=== PATIENT | female | born 1940 | race Two or more races ===

== ENCOUNTER → 2022-12-19 | Outpatient (CLI) | payer MEDICAID ==
[~2022-12-19] VITALS: Ht 134.6 cm; Wt 79.4 kg
[~2022-12-19] MED LIST: ADENOSINE 67 MG in GIVE UN-DILUTED 0 ML IV ONE; ADENOSINE 90 MG/30 ML INJ IV ONE
== END | disposition home or self-care (01) ==
LOC: Rad HDHVI 10:00
PROVIDERS: ATTEND Internal Medicine Cardiovascular Disease
DX: I08.3 Combined rheumatic disorders of mitral, aortic and tricuspid valves (principal); I11.9 Hypertensive heart disease without heart failure; R07.89 Other chest pain; E11.21 Type 2 diabetes mellitus with diabetic nephropathy; E78.00 Pure hypercholesterolemia, unspecified
CPT/HCPCS: 78452; 93005; 93306; 96374; 96375; A9500; J0153

== ENCOUNTER 2022-12-24 22:18 | Inpatient (IN) | payer MEDICAID ==
[~2022-12-24] VITALS: Ht 152.4 cm; Wt 64.4 kg
[2022-12-24 22:37] VITALS: PULSE 66; RESP 24; O2SAT 97
[2022-12-24 22:45] LABS: Base Excess -3.1 mmol/L (-2.0-2.0)
[2022-12-24 23:05] LABS: Basophils # (auto) 0 10 ^3/uL (0-0.2); Basophils % (auto) 0.2 % (0.0-2.0); Eosinophils # (auto) 0.1 10 ^3/uL (0-0.8); Eosinophils % (auto) 0.8 % (0.0-7.0); Hematocrit 38.1 % (36.0-46.0); Hemoglobin 12.8 g/dL (12.2-16.2); Lymphocytes # (auto) 0.6 10 ^3/uL (0.4-5.4); Mean Corpuscular Hemoglobin 29.8 pg (28.0-32.0); Mean Corpuscular Hgb Conc. 33.6 g/dL (32.0-36.0); Mean Corpuscular Volume 88.6 fL (80.0-100.0); Monocytes # (auto) 0.6 10 ^3/uL (0-1.3); Monocytes % (auto) 4.1 % (0.0-12.0); Neutrophils % (auto) 90.9 % (37.0-80.0); Red Cell Distribution Width 13.5 % (11.8-14.3); White Blood Cell 15.4 10^3/uL (4.4-10.8)
[2022-12-24 23:25] LABS: Alanine Aminotransferase 14 U/L (7-40); Albumin 4.4 g/dL (3.2-4.8); Alkaline Phosphatase 73 U/L (46-116); Anion Gap 10 (5-15); Aspartate Aminotransferase 17 U/L (13-40); BUN/Creatinine Ratio 22.8 (10.0-20.0); Blood Urea Nitrogen 13 mg/dL (9-23); Calcium 9.1 mg/dL (8.7-10.4); Carbon Dioxide 23 mmol/L (20-30); Chloride 80 mmol/L (98-107); Glucose 172 mg/dL (74-106); Magnesium 1.7 mg/dL (1.6-2.6); Potassium 3.8 mmol/L (3.5-5.1)
[2022-12-24 23:26] LABS: Bilirubin, Total 1.1 mg/dL (0.2-1.0); Lactic Acid w/Reflex 4.4 mmol/L (0.4-2.0); Total Protein 7.4 g/dL (5.7-8.2)
[2022-12-24] MEDS ORDERED: IPRATROPIUM BROM 0.5 MG/2.5ML INH SOL NEB ONE (23:30)
[2022-12-24] MEDS ORDERED: VANCOMYCIN PER PHARMACY 0 MG IV SCH (23:30)
[2022-12-24] MEDS ORDERED: methylPREDNISolone SOD SUCC 125 MG/2 ML VL IV ONE (23:30)
[2022-12-24] MEDS ORDERED: ALBUTEROL MEDNEB 2.5 mg/3ml NEB NEB ONE (23:30)
[2022-12-24] MEDS ORDERED: CEFTRIAXONE SODIUM 2 GM in D5W 5% 100 ML IV ONE (23:30)
[2022-12-24 23:46] LABS: INR 1.15 (0.9-1.15); Partial Thromboplastin Time 36.7 SEC (24.5-34.5)
[2022-12-25] VITALS (28 sets, daily range): BP systolic 105–133; BP diastolic 32–59; PULSE 51–69; RESP 12–25; TEMP 97.8–98.1; O2SAT 93–100
[2022-12-25] MEDS ORDERED: VANCOMYCIN 1GM/250ML 250 ML IV ONE
[2022-12-25 00:07] LABS: Sodium 113 mmol/L (136-145)
[2022-12-25] MEDS ORDERED: SODIUM CHL 3% 500 ML IV ONE (01:15)
[2022-12-25] MEDS ORDERED: cefTRIAXone 1GM/50ML D5W 50 ML IV ONE ×2 (01:15)
[2022-12-25 02:06] LABS: Sodium Urine < 10 mmol/L (40-220)
[2022-12-25 02:12] LABS: Amphetamine Screen, Urine Neg (NEGATIVE); Barbiturate Scree,Urine Neg (NEGATIVE); Benzodiazephine Screen, Urine Neg (NEGATIVE); Cocaine Screen, Urine Neg (NEGATIVE); Opiate Scree,Urine Neg (NEGATIVE)
[2022-12-25 02:13] LABS: Cannabinoid Screen, Urine Neg (NEGATIVE); Phencyclidine Screen, Urine Neg (NEGATIVE)
[2022-12-25 02:18] LABS: Urine Bacteria FEW /hpf (None Seen); Urine Blood 1+ /uL (Negative); Urine Clarity HAZY (Clear); Urine Color Yellow (Yellow); Urine Hyaline Cast MANY /lpf (0 - 2); Urine Mucus FEW (None Seen); Urine Protein, UAD 1+ (Negative); Urine Specific Gravity 1.016 (1.001-1.035); Urine WBC 38 /hpf (0 - 5); Urine WBC Clumps PRESENT /hpf (None Seen)
[2022-12-25] MEDS ORDERED: ONDANSETRON HCL 4 MG/2 ML VIAL IV PRN (05:00)
[2022-12-25] MEDS ORDERED: HYDROcodone-ACET 5/325MG TAB PO PRN (05:00)
[2022-12-25] MEDS ORDERED: DEXTROSE (50%) 50ML SYRG IV PRN (05:00)
[2022-12-25] MEDS ORDERED: ACETAMINOPHEN 325 MG TAB PO PRN (05:00)
[2022-12-25] MEDS ORDERED: DOCUSATE SOD 100 MG CAP PO PRN (05:00)
[2022-12-25 05:43] LABS: Basophils # (auto) 0 10 ^3/uL (0-0.2); Eosinophils # (auto) 0 10 ^3/uL (0-0.8); Hematocrit 37.1 % (36.0-46.0); Hemoglobin 12.7 g/dL (12.2-16.2); Lymphocytes # (auto) 0.3 10 ^3/uL (0.4-5.4); Mean Corpuscular Hgb Conc. 34.1 g/dL (32.0-36.0); Mean Corpuscular Volume 88.1 fL (80.0-100.0); Monocytes # (auto) 0.2 10 ^3/uL (0-1.3); Monocytes % (auto) 2.2 % (0.0-12.0); Neutrophils # (auto) 10.2 10 ^3/uL (1.6-8.6); Neutrophils % (auto) 94.8 % (37.0-80.0); Red Blood Cells 4.22 10^6/uL (4.0-5.20); Red Cell Distribution Width 13.6 % (11.8-14.3); White Blood Cell 10.7 10^3/uL (4.4-10.8)
[2022-12-25 06:00] LABS: Alanine Aminotransferase 14 U/L (7-40); Albumin 4.1 g/dL (3.2-4.8); Alkaline Phosphatase 74 U/L (46-116); Anion Gap 10 (5-15); Aspartate Aminotransferase 15 U/L (13-40); BUN/Creatinine Ratio 26.8 (10.0-20.0); Bilirubin, Total 0.7 mg/dL (0.2-1.0); Blood Urea Nitrogen 15 mg/dL (9-23); Carbon Dioxide 24 mmol/L (20-30); Chloride 80 mmol/L (98-107); Glucose 187 mg/dL (74-106); Potassium 4.2 mmol/L (3.5-5.1); Total Protein 6.9 g/dL (5.7-8.2)
[2022-12-25] MEDS: SODIUM CHLOR 0.9% PF (SALINE LOCK) 10ML VIAL/SYR IV SCH ×3 (06:07→22:25)
[2022-12-25 06:17] LABS: Sodium 114 mmol/L (136-145)
[2022-12-25] MEDS ORDERED: MORPHINE SULFATE INJ 2 MG/ml SYRG IV PRN (06:30)
[2022-12-25] MEDS ORDERED: NITROGLYCERIN 0.4 MG SL TAB SL PRN (06:30)
[2022-12-25] MEDS: ACCU-CHEK COMFORT CURVE STRIP VI SCH ×4 (07:11→22:27)
[2022-12-25] MEDS: InsuLIN REG 1unit/0.01ml Soln (100units/ml) SC SCH ×4 (07:20→22:25)
[2022-12-25] MEDS ORDERED: SODIUM CHLORIDE 0.9% 500 ML IV ONE (08:00)
[2022-12-25 08:57] LABS: Chloride 84 mmol/L (98-107); Potassium 4.2 mmol/L (3.5-5.1)
[2022-12-25 08:58] LABS: Anion Gap 7 (5-15); Calcium 9.5 mg/dL (8.5-10.1); Carbon Dioxide 25 mmol/L (20-30)
[2022-12-25 09:03] LABS: Blood Urea Nitrogen 14 mg/dL (9-23); Glucose 195 mg/dL (74-106)
[2022-12-25 09:06] LABS: Lactic Acid w/Reflex 2.6 mmol/L (0.4-2.0)
[2022-12-25 09:08] LABS: Sodium 116 mmol/L (136-145)
[2022-12-25] MEDS ORDERED: DexAMETHasone SOD PHOS 10MG/1ML VIAL INJ IV SCH (10:00)
[2022-12-25] MEDS: FAMOTIDINE (10MG/ML) 2ML VL IV SCH ×2 (11:16→22:25)
[2022-12-25] MEDS: ENOXAPARIN SOD 40 MG/0.4 ML SYRINGE SC SCH (11:17)
[2022-12-25] MEDS: IPRATROPIUM BROM 0.5 MG/2.5ML INH SOL NEB PRN (11:37)
[2022-12-25] MEDS: ALBUTEROL MEDNEB 2.5 mg/3ml NEB NEB PRN (11:38)
[2022-12-25 12:15] LABS: Urine Bacteria FEW /hpf (None Seen); Urine Blood 1+ /uL (Negative); Urine Clarity Clear (Clear); Urine Color Colorless (Yellow); Urine Protein, UAD TRACE (Negative); Urine Specific Gravity 1.004 (1.001-1.035); Urine Urobilinogen Normal (Negative); Urine WBC 19 /hpf (0 - 5)
[2022-12-25 12:16] LABS: Sodium Urine < 10 mmol/L (40-220)
[2022-12-25 12:24] LABS: Creatinine, Urine 6.03 mg/dL (30.0-125.0)
[2022-12-25 14:38] LABS: Chloride 93 mmol/L (98-107); Potassium 4.3 mmol/L (3.5-5.1)
[2022-12-25 14:39] LABS: Anion Gap 5 (5-15); Carbon Dioxide 26 mmol/L (20-30)
[2022-12-25 14:40] LABS: Calcium 9.2 mg/dL (8.7-10.4)
[2022-12-25 14:41] LABS: Sodium 124 mmol/L (136-145)
[2022-12-25 14:44] LABS: Glucose 151 mg/dL (74-106)
[2022-12-25 14:45] LABS: BUN/Creatinine Ratio 22.9 (10.0-20.0); Blood Urea Nitrogen 11 mg/dL (9-23)
[2022-12-25] MEDS ORDERED: VANCOMYCIN 750mg/250ml 250 ML IV SCH (15:00)
[2022-12-25] MEDS ORDERED: D5W 5% 1,000 ML IV ONE (17:00)
[2022-12-25 18:42] LABS: Chloride 93 mmol/L (98-107); Potassium 4.3 mmol/L (3.5-5.1); Sodium 125 mmol/L (136-145)
[2022-12-25 18:43] LABS: Anion Gap 4 (5-15); Calcium 9.4 mg/dL (8.5-10.1); Carbon Dioxide 28 mmol/L (20-30)
[2022-12-25 18:48] LABS: BUN/Creatinine Ratio 23.8 (10.0-20.0); Blood Urea Nitrogen 10 mg/dL (9-23); Glucose 163 mg/dL (74-106)
[2022-12-25 22:31] LABS: Chloride 92 mmol/L (98-107); Potassium 3.8 mmol/L (3.5-5.1); Sodium 124 mmol/L (136-145)
[2022-12-25 22:32] LABS: Anion Gap 5 (5-15); Carbon Dioxide 27 mmol/L (20-30)
[2022-12-25 22:33] LABS: Calcium 9.2 mg/dL (8.7-10.4)
[2022-12-25 22:37] LABS: Glucose 207 mg/dL (74-106)
[2022-12-25 22:38] LABS: BUN/Creatinine Ratio 20.5 (10.0-20.0); Blood Urea Nitrogen 9 mg/dL (9-23)
[2022-12-26] VITALS (31 sets, daily range): BP systolic 121–149; BP diastolic 45–80; PULSE 42–67; RESP 1–25; TEMP 96.5–97.8; O2SAT 93–100
[2022-12-26] MEDS ORDERED: LORazepam 2MG/ML-1ML VIAL IV PRN (00:15)
[2022-12-26 04:03] LABS: Basophils # (auto) 0 10 ^3/uL (0-0.2); Eosinophils # (auto) 0 10 ^3/uL (0-0.8); Hematocrit 35.9 % (36.0-46.0); Hemoglobin 12.3 g/dL (12.2-16.2); Lymphocytes # (auto) 0.4 10 ^3/uL (0.4-5.4); Lymphocytes % (auto) 5.8 % (10.0-50.0); Mean Corpuscular Hemoglobin 30.4 pg (28.0-32.0); Mean Corpuscular Hgb Conc. 34.2 g/dL (32.0-36.0); Mean Corpuscular Volume 88.9 fL (80.0-100.0); Monocytes # (auto) 0.7 10 ^3/uL (0-1.3); Monocytes % (auto) 10.4 % (0.0-12.0); Neutrophils # (auto) 5.7 10 ^3/uL (1.6-8.6); Neutrophils % (auto) 83.8 % (37.0-80.0); Red Blood Cells 4.05 10^6/uL (4.0-5.20); Red Cell Distribution Width 13.3 % (11.8-14.3); White Blood Cell 6.8 10^3/uL (4.4-10.8)
[2022-12-26 04:31] LABS: Alanine Aminotransferase 11 U/L (7-40); Alkaline Phosphatase 49 U/L (46-116); Anion Gap 7 (5-15); Aspartate Aminotransferase 15 U/L (13-40); BUN/Creatinine Ratio 20.5 (10.0-20.0); Bilirubin, Total 0.7 mg/dL (0.2-1.0); Blood Urea Nitrogen 8 mg/dL (9-23); Calcium 9.3 mg/dL (8.5-10.1); Carbon Dioxide 25 mmol/L (20-30); Chloride 91 mmol/L (98-107); Cholesterol 89 mg/dL (< 200); Glucose 203 mg/dL (74-106); HDL Cholesterol 40 mg/dL (40-59); LDL Cholesterol 31 mg/dL (< 100); Phosphorus 3.3 mg/dL (2.4-5.1); Potassium 3.7 mmol/L (3.5-5.1); Sodium 123 mmol/L (136-145); Total Protein 6.7 g/dL (5.7-8.2); Triglycerides 69 mg/dL (< 150)
[2022-12-26] MEDS: SODIUM CHLOR 0.9% PF (SALINE LOCK) 10ML VIAL/SYR IV SCH ×3 (06:02→22:07)
[2022-12-26] MEDS: InsuLIN REG 1unit/0.01ml Soln (100units/ml) SC SCH ×4 (07:00→22:11)
[2022-12-26] MEDS: ACCU-CHEK COMFORT CURVE STRIP VI SCH ×4 (07:12→22:07)
[2022-12-26] MEDS: cefTRIAXone 1GM/50ML D5W 50 ML IV SCH (09:05)
[2022-12-26] MEDS: ENOXAPARIN SOD 40 MG/0.4 ML SYRINGE SC SCH (10:09)
[2022-12-26] MEDS ORDERED: GASTROGRAFIN 120 ML SOL ONE (10:14)
[2022-12-26 10:53] LABS: Chloride 93 mmol/L (98-107); Potassium 3.5 mmol/L (3.5-5.1); Sodium 126 mmol/L (136-145)
[2022-12-26 10:54] LABS: Anion Gap 6 (5-15); Calcium 9.2 mg/dL (8.7-10.4); Carbon Dioxide 27 mmol/L (20-30)
[2022-12-26 10:58] LABS: Folate (Folic Acid) 23.99 ng/mL (>5.38)
[2022-12-26 10:59] LABS: BUN/Creatinine Ratio 17.1 (10.0-20.0); Blood Urea Nitrogen 7 mg/dL (9-23); Glucose 147 mg/dL (74-106)
[2022-12-26] MEDS ORDERED: D5W 5% 1,000 ML IV SCH (12:30)
[2022-12-26] MEDS ORDERED: DESMOPRESSIN ACET 4 MCG/1 ML AMPULE IV ONE (12:45)
[2022-12-26] MEDS: ALBUTEROL MEDNEB 2.5 mg/3ml NEB NEB PRN ×2 (14:00→18:50)
[2022-12-26] MEDS: IPRATROPIUM BROM 0.5 MG/2.5ML INH SOL NEB PRN ×2 (14:00→18:51)
[2022-12-26 14:45] LABS: Chloride 96 mmol/L (98-107); Potassium 3.4 mmol/L (3.5-5.1)
[2022-12-26 14:46] LABS: Anion Gap 4 (5-15); Carbon Dioxide 31 mmol/L (20-30)
[2022-12-26 14:47] LABS: Calcium 9.7 mg/dL (8.5-10.1)
[2022-12-26 14:50] LABS: Sodium 131 mmol/L (136-145)
[2022-12-26 14:51] LABS: Blood Urea Nitrogen 7 mg/dL (9-23); Glucose 133 mg/dL (74-106)
[2022-12-26 14:55] LABS: BUN/Creatinine Ratio 16.3 (10.0-20.0)
[2022-12-26] MEDS: SUCRALFATE 1 GM/10 ML ORAL SUSP GT SCH (17:46)
[2022-12-26] MEDS ORDERED: DESMOPRESSIN ACET 4 MCG/1 ML AMPULE IV SCH (18:00)
[2022-12-26] MEDS: POTASSIUM CHLORIDE 20 MEQ in D5W 5% 1,000 ML IV SCH ×2 (18:56→23:35)
[2022-12-26] MEDS: Glucerna Carbsteady SHAKE Vanilla 8oz PEG SCH ×2 (18:57→22:00)
[2022-12-26 19:06] LABS: Chloride 95 mmol/L (98-107); Sodium 129 mmol/L (136-145)
[2022-12-26 19:07] LABS: Anion Gap 5 (5-15); Carbon Dioxide 29 mmol/L (20-30)
[2022-12-26 19:08] LABS: Calcium 9.4 mg/dL (8.7-10.4)
[2022-12-26 19:13] LABS: BUN/Creatinine Ratio 16.7 (10.0-20.0); Blood Urea Nitrogen 7 mg/dL (9-23); Glucose 150 mg/dL (74-106)
[2022-12-26 19:19] LABS: Potassium 2.9 mmol/L (3.5-5.1)
[2022-12-26] MEDS: POTASSIUM CHL 20MEQ/100ML 100 ML IV SCH ×2 (20:30→21:55)
[2022-12-26] MEDS ORDERED: ATORVASTATIN 20 MG TAB PO SCH (22:00)
[2022-12-27] VITALS (13 sets, daily range): BP systolic 112–142; BP diastolic 43–57; PULSE 38–54; RESP 16–23; TEMP 97.4; O2SAT 93–99
[2022-12-27] MEDS: IPRATROPIUM BROM 0.5 MG/2.5ML INH SOL NEB PRN (00:29)
[2022-12-27] MEDS: ALBUTEROL MEDNEB 2.5 mg/3ml NEB NEB PRN (00:29)
[2022-12-27 00:37] LABS: Chloride 95 mmol/L (98-107); Potassium 4.3 mmol/L (3.5-5.1); Sodium 126 mmol/L (136-145)
[2022-12-27 00:38] LABS: Anion Gap 4 (5-15); Calcium 8.7 mg/dL (8.7-10.4); Carbon Dioxide 27 mmol/L (20-30)
[2022-12-27 00:43] LABS: Blood Urea Nitrogen 8 mg/dL (9-23); Glucose 148 mg/dL (74-106)
[2022-12-27] MEDS: SUCRALFATE 1 GM/10 ML ORAL SUSP GT SCH ×2 (05:15→11:16)
[2022-12-27] MEDS: SODIUM CHLOR 0.9% PF (SALINE LOCK) 10ML VIAL/SYR IV SCH ×2 (05:15→14:45)
[2022-12-27] MEDS: Glucerna Carbsteady SHAKE Vanilla 8oz PEG SCH ×2 (05:15→12:24)
[2022-12-27] MEDS: ACCU-CHEK COMFORT CURVE STRIP VI SCH ×2 (06:00→12:25)
[2022-12-27] MEDS: InsuLIN REG 1unit/0.01ml Soln (100units/ml) SC SCH ×2 (06:05→11:30)
[2022-12-27] MEDS: POTASSIUM CHLORIDE 20 MEQ in D5W 5% 1,000 ML IV SCH (07:40)
[2022-12-27 09:08] LABS: Basophils # (auto) 0 10 ^3/uL (0-0.2); Basophils % (auto) 0.2 % (0.0-2.0); Eosinophils # (auto) 0.1 10 ^3/uL (0-0.8); Eosinophils % (auto) 1.2 % (0.0-7.0); Hematocrit 35.7 % (36.0-46.0); Hemoglobin 12.1 g/dL (12.2-16.2); Lymphocytes % (auto) 12.3 % (10.0-50.0); Mean Corpuscular Hemoglobin 30.1 pg (28.0-32.0); Mean Corpuscular Hgb Conc. 33.9 g/dL (32.0-36.0); Mean Corpuscular Volume 88.8 fL (80.0-100.0); Monocytes # (auto) 1.3 10 ^3/uL (0-1.3); Monocytes % (auto) 15.5 % (0.0-12.0); Neutrophils # (auto) 5.8 10 ^3/uL (1.6-8.6); Neutrophils % (auto) 70.8 % (37.0-80.0); Red Blood Cells 4.01 10^6/uL (4.0-5.20); White Blood Cell 8.2 10^3/uL (4.4-10.8)
[2022-12-27] MEDS ORDERED: ASPirin-EC 81 mg tab PO SCH (10:00)
[2022-12-27] MEDS: cefTRIAXone 1GM/50ML D5W 50 ML IV SCH (10:55)
[2022-12-27] MEDS: ENOXAPARIN SOD 40 MG/0.4 ML SYRINGE SC SCH (10:55)
== END 2022-12-27 14:35 | disposition home health service (06) | DRG 426 ==
LOC: EDBD 22:18 → ER 22:18 → TELE 12-25 06:19 → ICU WEST 12-25 10:13 → TELE-CENTR 12-27 06:24
PROVIDERS: ADMIT Nurse Practitioner Family; ATTEND Hospitalist
DX: E87.1 Hypo-osmolality and hyponatremia (principal); G93.41 Metabolic encephalopathy; E87.20 Acidosis, unspecified; I50.9 Heart failure, unspecified; J44.1 Chronic obstructive pulmonary disease with (acute) exacerbation; I11.0 Hypertensive heart disease with heart failure; E87.8 Other disorders of electrolyte and fluid balance, not elsewhere classified; N39.0 Urinary tract infection, site not specified; E11.65 Type 2 diabetes mellitus with hyperglycemia; E78.5 Hyperlipidemia, unspecified; E87.6 Hypokalemia; R09.02 Hypoxemia; I48.91 Unspecified atrial fibrillation; Z74.01 Bed confinement status; Z79.82 Long term (current) use of aspirin; Z79.899 Other long term (current) drug therapy; Z86.73 Personal history of transient ischemic attack (TIA), and cerebral infarction without residual deficits; Z87.440 Personal history of urinary (tract) infections
CPT/HCPCS: 36415; 36600; 70450; 70551; 71045; 74018; 74176; 74250; 80048; 80053; 80061; 80307; 80320; 81001; 82140; 82271; 82306; 82533; 82570; 82607; 82746; 82805; 82962; 83605; 83735; 83880; 83930; 83935; 84100; 84133; 84300; 84443; 84484; 85025; 85379; 85610; 85730; 87040; 87081; 87086; 93005; 94640; 95819; 99291; G0378; J0696; J1100; J1815; J3480; J3490; J7060

== ENCOUNTER 2023-01-09 10:52 | Inpatient (IN) | payer MEDICAID ==
[~2023-01-09] VITALS: Ht 162.6 cm; Wt 78.0 kg
[2023-01-09] MEDS ORDERED: PIPERACILLIN-TAZOB 3.375GM 100 ML IV ONE (11:15)
[2023-01-09] MEDS ORDERED: FUROSEMIDE 40 MG/4 ML VIAL IV ONE (11:15)
[2023-01-09 11:52] LABS: Basophils # (auto) 0 10 ^3/uL (0-0.2); Basophils % (auto) 0.2 % (0.0-2.0); Eosinophils # (auto) 0 10 ^3/uL (0-0.8); Eosinophils % (auto) 0.3 % (0.0-7.0); Hemoglobin 11.7 g/dL (12.2-16.2); Mean Corpuscular Hemoglobin 30.1 pg (28.0-32.0); Mean Corpuscular Hgb Conc. 34.4 g/dL (32.0-36.0); Mean Corpuscular Volume 87.5 fL (80.0-100.0); Monocytes # (auto) 0.8 10 ^3/uL (0-1.3); Monocytes % (auto) 7.8 % (0.0-12.0); Neutrophils # (auto) 8.6 10 ^3/uL (1.6-8.6); Neutrophils % (auto) 81.7 % (37.0-80.0); Red Blood Cells 3.89 10^6/uL (4.0-5.20); Red Cell Distribution Width 13.9 % (11.8-14.3); White Blood Cell 10.5 10^3/uL (4.4-10.8)
[2023-01-09 12:17] LABS: INR 1.15 (0.9-1.15); Partial Thromboplastin Time 33.8 SEC (24.5-34.5)
[2023-01-09 12:28] LABS: Alanine Aminotransferase 14 U/L (7-40); Albumin 4.1 g/dL (3.2-4.8); Alkaline Phosphatase 81 U/L (46-116); Anion Gap 6 (5-15); Aspartate Aminotransferase 18 U/L (13-40); BUN/Creatinine Ratio 32.5 (10.0-20.0); Blood Urea Nitrogen 13 mg/dL (9-23); Calcium 9.4 mg/dL (8.5-10.1); Carbon Dioxide 33 mmol/L (20-30); Chloride 77 mmol/L (98-107); Glucose 134 mg/dL (74-106); Potassium 3.9 mmol/L (3.5-5.1); Total Protein 6.8 g/dL (5.7-8.2)
[2023-01-09 12:53] LABS: Sodium 116 mmol/L (136-145)
[2023-01-09] MEDS ORDERED: ONDANSETRON HCL 4 MG/2 ML VIAL IV PRN (13:45)
[2023-01-09] MEDS ORDERED: NITROGLYCERIN 0.4 MG SL TAB SL PRN (13:45)
[2023-01-09] MEDS ORDERED: MORPHINE SULFATE INJ 2 MG/ml SYRG IV PRN (13:45)
[2023-01-09] MEDS ORDERED: DEXTROSE (50%) 50ML SYRG IV PRN (13:45)
[2023-01-09] MEDS ORDERED: ACETAMINOPHEN 650 mg PER 20.3 mL UD GT PRN (13:45)
[2023-01-09] MEDS ORDERED: METF-370 PO (14:39)
[2023-01-09] MEDS ORDERED: FURO40TA4 PO (14:39)
[2023-01-09] MEDS ORDERED: LOSA100T58 PO (14:39)
[2023-01-09] MEDS ORDERED: AMLO1TAB23 PO (14:39)
[2023-01-09] MEDS ORDERED: APIX5TAB PO (14:39)
[2023-01-09] MEDS ORDERED: SODIUM CHL 3% 500 ML IV ONE (14:45)
[2023-01-09 15:28] VITALS: PULSE 50; RESP 22; O2SAT 94
[2023-01-09] MEDS: InsuLIN REG 1unit/0.01ml Soln (100units/ml) SC SCH ×2 (17:00→22:00)
[2023-01-09] MEDS: ACCU-CHEK COMFORT CURVE STRIP VI SCH ×2 (17:00→22:14)
[2023-01-09 17:40] LABS: Hematocrit 32.8 % (36.0-46.0); Hemoglobin 11.3 g/dL (12.2-16.2)
[2023-01-09] MEDS: FUROSEMIDE 20 MG/2 ML VIAL IV SCH (17:44)
[2023-01-09 17:55] VITALS: PULSE 53; O2SAT 99
[2023-01-09 19:40] VITALS: PULSE 52; RESP 22; O2SAT 97
[2023-01-09 21:06] VITALS: O2SAT 99
[2023-01-09 22:41] LABS: Rapid Influenza A Negative (Negative); Rapid Influenza B Negative (Negative)
[2023-01-09 22:42] LABS: COVID19 ANTIGEN SOFIA FIA NEGATIVE (NEGATIVE)
[2023-01-09 22:51] LABS: Urine Bacteria FEW /hpf (None Seen); Urine Blood Negative /uL (Negative); Urine Clarity Clear (Clear); Urine Color Colorless (Yellow); Urine Protein, UAD Negative (Negative); Urine Specific Gravity 1.005 (1.001-1.035); Urine Urobilinogen Normal (Negative); Urine WBC 4 /hpf (0 - 5)
[2023-01-09] MEDS: PANTOPRAZOLE 40 MG/10 ML VIAL INJ IV SCH (23:15)
[2023-01-10 01:32] LABS: Alanine Aminotransferase 13 U/L (7-40); Albumin 3.9 g/dL (3.2-4.8); Alkaline Phosphatase 62 U/L (46-116); Anion Gap 4 (5-15); Aspartate Aminotransferase 15 U/L (13-40); BUN/Creatinine Ratio 30.6 (10.0-20.0); Bilirubin, Total 0.9 mg/dL (0.2-1.0); Blood Urea Nitrogen 11 mg/dL (9-23); Calcium 8.9 mg/dL (8.7-10.4); Carbon Dioxide 33 mmol/L (20-30); Glucose 84 mg/dL (74-106); Potassium 3.6 mmol/L (3.5-5.1); Total Protein 6.5 g/dL (5.7-8.2)
[2023-01-10 01:41] LABS: Chloride 91 mmol/L (98-107); Sodium 128 mmol/L (136-145)
[2023-01-10] MEDS: FUROSEMIDE 20 MG/2 ML VIAL IV SCH (05:55)
[2023-01-10 06:19] LABS: Basophils # (auto) 0 10 ^3/uL (0-0.2); Basophils % (auto) 0.7 % (0.0-2.0); Eosinophils # (auto) 0 10 ^3/uL (0-0.8); Eosinophils % (auto) 0.5 % (0.0-7.0); Hematocrit 33.9 % (36.0-46.0); Hemoglobin 11.6 g/dL (12.2-16.2); Lymphocytes # (auto) 0.4 10 ^3/uL (0.4-5.4); Lymphocytes % (auto) 5.8 % (10.0-50.0); Mean Corpuscular Hemoglobin 30.5 pg (28.0-32.0); Mean Corpuscular Hgb Conc. 34.3 g/dL (32.0-36.0); Mean Corpuscular Volume 88.9 fL (80.0-100.0); Monocytes # (auto) 0.8 10 ^3/uL (0-1.3); Neutrophils # (auto) 5.8 10 ^3/uL (1.6-8.6); Red Blood Cells 3.81 10^6/uL (4.0-5.20); Red Cell Distribution Width 13.8 % (11.8-14.3); White Blood Cell 7.1 10^3/uL (4.4-10.8)
[2023-01-10] MEDS: ACCU-CHEK COMFORT CURVE STRIP VI SCH ×4 (06:37→22:21)
[2023-01-10] MEDS: InsuLIN REG 1unit/0.01ml Soln (100units/ml) SC SCH ×4 (06:38→22:22)
[2023-01-10 06:46] LABS: Alanine Aminotransferase 15 U/L (7-40); Alkaline Phosphatase 54 U/L (46-116); Anion Gap 7 (5-15); Aspartate Aminotransferase 17 U/L (13-40); BUN/Creatinine Ratio 35.1 (10.0-20.0); Bilirubin, Total 0.8 mg/dL (0.2-1.0); Blood Urea Nitrogen 13 mg/dL (9-23); Calcium 9.5 mg/dL (8.5-10.1); Carbon Dioxide 33 mmol/L (20-30); Chloride 91 mmol/L (98-107); Glucose 92 mg/dL (74-106); Potassium 3.4 mmol/L (3.5-5.1); Sodium 131 mmol/L (136-145); Total Protein 6.7 g/dL (5.7-8.2)
[2023-01-10 07:05] VITALS: O2SAT 97
[2023-01-10] MEDS: PANTOPRAZOLE 40 MG/10 ML VIAL INJ IV SCH ×2 (08:56→22:23)
[2023-01-10] MEDS ORDERED: cefTRIAXone 1GM/50ML D5W 50 ML IV SCH (09:00)
[2023-01-10] MEDS: LOSARTAN POTASSIUM 50 MG TAB PO SCH (09:48)
[2023-01-10] MEDS: amLODIPine BESYLATE 5 MG TAB PO SCH (09:48)
[2023-01-10] MEDS ORDERED: AZITHROMYCIN 500MG/ 250ML 250 ML IV SCH (10:00)
[2023-01-10] MEDS ORDERED: DESMOPRESSIN ACET 4 MCG/1 ML AMPULE IV SCH (12:15)
[2023-01-10] MEDS ORDERED: D5W 5% 500 ML IV SCH (12:30)
[2023-01-10 13:33] LABS: Chloride 93 mmol/L (98-107); Potassium 3.4 mmol/L (3.5-5.1); Sodium 133 mmol/L (136-145)
[2023-01-10 13:34] LABS: Anion Gap 7 (5-15); Calcium 9.6 mg/dL (8.5-10.1); Carbon Dioxide 33 mmol/L (20-30)
[2023-01-10 13:39] LABS: BUN/Creatinine Ratio 37.1 (10.0-20.0); Blood Urea Nitrogen 13 mg/dL (9-23); Glucose 104 mg/dL (74-106)
[2023-01-10] MEDS ORDERED: POTASSIUM CHL 20MEQ/50ML 50 ML IV SCH (15:30)
[2023-01-10] MEDS: POTASSIUM CHL 20MEQ/100ML 100 ML IV SCH ×2 (15:49→17:32)
[2023-01-10] MEDS: hydrALAZINE HCL 20 MG/ML VL IV PRN (17:31)
[2023-01-10 18:08] VITALS: O2SAT 98
[2023-01-10 18:42] LABS: Anion Gap 7 (5-15); Carbon Dioxide 32 mmol/L (20-30); Chloride 92 mmol/L (98-107); Potassium 3.4 mmol/L (3.5-5.1); Sodium 131 mmol/L (136-145)
[2023-01-10 18:44] LABS: Calcium 9.9 mg/dL (8.5-10.1)
[2023-01-10 18:48] LABS: Glucose 123 mg/dL (74-106)
[2023-01-10 18:49] LABS: BUN/Creatinine Ratio 26.3 (10.0-20.0); Blood Urea Nitrogen 10 mg/dL (9-23)
[2023-01-10] MEDS ORDERED: D5W 5% IV STA (18:50)
[2023-01-10] MEDS ORDERED: DESMOPRESSIN ACET 4 MCG/1 ML AMPULE SUBCUT ONE (19:00)
[2023-01-10 19:30] VITALS: PULSE 78; RESP 28; O2SAT 98
[2023-01-10 22:19] LABS: Chloride 93 mmol/L (98-107); Potassium 3.1 mmol/L (3.5-5.1); Sodium 130 mmol/L (136-145)
[2023-01-10 22:20] LABS: Anion Gap 5 (5-15); Calcium 9.7 mg/dL (8.5-10.1); Carbon Dioxide 32 mmol/L (20-30)
[2023-01-10 22:25] LABS: BUN/Creatinine Ratio 18.4 (10.0-20.0); Blood Urea Nitrogen 7 mg/dL (9-23); Glucose 160 mg/dL (74-106)
[2023-01-11 02:33] LABS: Chloride 94 mmol/L (98-107); Sodium 132 mmol/L (136-145)
[2023-01-11 02:34] LABS: Anion Gap 6 (5-15); Calcium 9.1 mg/dL (8.7-10.4); Carbon Dioxide 32 mmol/L (20-30)
[2023-01-11 02:39] LABS: BUN/Creatinine Ratio 19.4 (10.0-20.0); Blood Urea Nitrogen 6 mg/dL (9-23)
[2023-01-11 03:17] LABS: Creatinine, Urine 18.39 mg/dL (30.0-125.0)
[2023-01-11 04:54] LABS: Glucose 107 mg/dL (74-106)
[2023-01-11] MEDS: hydrALAZINE HCL 20 MG/ML VL IV PRN (05:07)
[2023-01-11] MEDS ORDERED: POTASSIUM CHL 20MEQ/50ML 50 ML IV ONE (06:30)
[2023-01-11] MEDS: ACCU-CHEK COMFORT CURVE STRIP VI SCH ×4 (06:31→22:09)
[2023-01-11 06:39] LABS: Basophils # (auto) 0 10 ^3/uL (0-0.2); Basophils % (auto) 0.4 % (0.0-2.0); Eosinophils # (auto) 0 10 ^3/uL (0-0.8); Eosinophils % (auto) 0.5 % (0.0-7.0); Hematocrit 36.6 % (36.0-46.0); Hemoglobin 12.3 g/dL (12.2-16.2); Lymphocytes # (auto) 0.5 10 ^3/uL (0.4-5.4); Lymphocytes % (auto) 5.4 % (10.0-50.0); Mean Corpuscular Hemoglobin 29.6 pg (28.0-32.0); Mean Corpuscular Hgb Conc. 33.6 g/dL (32.0-36.0); Mean Corpuscular Volume 88.1 fL (80.0-100.0); Monocytes # (auto) 0.9 10 ^3/uL (0-1.3); Monocytes % (auto) 10.3 % (0.0-12.0); Neutrophils # (auto) 7.7 10 ^3/uL (1.6-8.6); Neutrophils % (auto) 83.4 % (37.0-80.0); Red Blood Cells 4.15 10^6/uL (4.0-5.20); Red Cell Distribution Width 14.4 % (11.8-14.3); White Blood Cell 9.2 10^3/uL (4.4-10.8)
[2023-01-11 06:40] LABS: Anion Gap 8 (5-15); Carbon Dioxide 30 mmol/L (20-30); Chloride 93 mmol/L (98-107); Sodium 131 mmol/L (136-145)
[2023-01-11] MEDS: MORPHINE SULFATE INJ 2 MG/ml SYRG IV PRN (06:40)
[2023-01-11 06:41] LABS: Calcium 9.3 mg/dL (8.7-10.4)
[2023-01-11] MEDS ORDERED: DESMOPRESSIN ACET 4 MCG/1 ML AMPULE IV SCH ×2 (06:45→10:00)
[2023-01-11 06:46] LABS: BUN/Creatinine Ratio 22.2 (10.0-20.0); Blood Urea Nitrogen 8 mg/dL (9-23); Magnesium 1.8 mg/dL (1.6-2.6)
[2023-01-11 06:58] LABS: Glucose 150 mg/dL (74-106)
[2023-01-11] MEDS: InsuLIN REG 1unit/0.01ml Soln (100units/ml) SC SCH ×4 (06:59→22:16)
[2023-01-11] MEDS ORDERED: POTASSIUM CHL 20MEQ/100ML 100 ML IV ONE ×3 (07:00→16:45)
[2023-01-11 07:20] VITALS: O2SAT 98
[2023-01-11] MEDS: D5W 5% IV SCH ×6 (07:22→22:15)
[2023-01-11 07:40] VITALS: PULSE 53; RESP 25; O2SAT 98
[2023-01-11] MEDS ORDERED: POTASSIUM CHL 20MEQ/50ML 50 ML IV SCH (09:45)
[2023-01-11] MEDS: amLODIPine BESYLATE 5 MG TAB PO SCH (10:00)
[2023-01-11] MEDS: LOSARTAN POTASSIUM 50 MG TAB PO SCH (10:00)
[2023-01-11 10:01] LABS: Base Excess 2.2 mmol/L (-2.0-2.0)
[2023-01-11] MEDS: PANTOPRAZOLE 40 MG/10 ML VIAL INJ IV SCH ×2 (10:17→22:15)
[2023-01-11 10:34] LABS: Chloride 96 mmol/L (98-107); Potassium 3.8 mmol/L (3.5-5.1); Sodium 133 mmol/L (136-145)
[2023-01-11 10:35] LABS: Anion Gap 7 (5-15); Calcium 9.5 mg/dL (8.5-10.1); Carbon Dioxide 30 mmol/L (20-30)
[2023-01-11 10:40] LABS: BUN/Creatinine Ratio 24.2 (10.0-20.0); Blood Urea Nitrogen 8 mg/dL (9-23); Glucose 103 mg/dL (74-106)
[2023-01-11] MEDS ORDERED: FUROSEMIDE 40 MG/4 ML VIAL IV ONE (10:45)
[2023-01-11 11:41] VITALS: PULSE 68; RESP 22; O2SAT 98
[2023-01-11] MEDS: IPRATROPIUM BROM 0.5 MG/2.5ML INH SOL NEB PRN ×2 (11:41→18:42)
[2023-01-11] MEDS: ALBUTEROL MEDNEB 2.5 mg/3ml NEB NEB PRN ×2 (11:42→18:42)
[2023-01-11 11:48] VITALS: PULSE 54; RESP 22; O2SAT 98
[2023-01-11 13:36] LABS: Free T3 3.06 pg/mL (2.3-4.2)
[2023-01-11 13:37] LABS: Free T4 (Free Thyroxine) 1.91 ng/dL (0.89-1.76)
[2023-01-11] MEDS ORDERED: ENOXAPARIN SOD 40 MG/0.4 ML SYRINGE SC ONE (14:15)
[2023-01-11 15:01] LABS: Chloride 96 mmol/L (98-107); Potassium 3.5 mmol/L (3.5-5.1); Sodium 132 mmol/L (136-145)
[2023-01-11 15:02] LABS: Anion Gap 6 (5-15); Carbon Dioxide 30 mmol/L (20-30)
[2023-01-11 15:03] LABS: Calcium 9.3 mg/dL (8.5-10.1)
[2023-01-11 15:07] LABS: Glucose 143 mg/dL (74-106)
[2023-01-11 15:23] LABS: BUN/Creatinine Ratio 15.2 (10.0-20.0); Blood Urea Nitrogen < 5 mg/dL (9-23)
[2023-01-11] MEDS: DESMOPRESSIN ACET 4 MCG/1 ML AMPULE IV SCH ×2 (17:00→21:08)
[2023-01-11 18:42] VITALS: PULSE 65; RESP 22; O2SAT 95
[2023-01-11 18:48] VITALS: PULSE 60; RESP 20; O2SAT 100
[2023-01-11 19:04] LABS: Chloride 93 mmol/L (98-107); Potassium 3.5 mmol/L (3.5-5.1)
[2023-01-11 19:05] LABS: Anion Gap 5 (5-15); Calcium 9.1 mg/dL (8.5-10.1); Carbon Dioxide 29 mmol/L (20-30)
[2023-01-11] MEDS: FUROSEMIDE 40 MG/4 ML VIAL IV SCH (19:06)
[2023-01-11 19:10] LABS: BUN/Creatinine Ratio 14.7 (10.0-20.0); Blood Urea Nitrogen 5 mg/dL (9-23); Glucose 213 mg/dL (74-106)
[2023-01-11 19:22] LABS: Sodium 127 mmol/L (136-145)
[2023-01-11 22:43] LABS: Chloride 93 mmol/L (98-107); Potassium 3.2 mmol/L (3.5-5.1); Sodium 127 mmol/L (136-145)
[2023-01-11 22:44] LABS: Anion Gap 6 (5-15); Calcium 9.2 mg/dL (8.5-10.1); Carbon Dioxide 28 mmol/L (20-30)
[2023-01-11 22:49] LABS: Glucose 150 mg/dL (74-106)
[2023-01-11 22:50] LABS: BUN/Creatinine Ratio 14.3 (10.0-20.0); Blood Urea Nitrogen < 5 mg/dL (9-23)
[2023-01-12] MEDS: D5W 5% IV SCH ×3 (00:45→06:08)
[2023-01-12] MEDS: DESMOPRESSIN ACET 4 MCG/1 ML AMPULE IV SCH ×2 (00:57→05:19)
[2023-01-12] MEDS: hydrALAZINE HCL 20 MG/ML VL IV PRN (05:22)
[2023-01-12] MEDS: ALBUTEROL MEDNEB 2.5 mg/3ml NEB NEB PRN (05:26)
[2023-01-12] MEDS: IPRATROPIUM BROM 0.5 MG/2.5ML INH SOL NEB PRN (05:26)
[2023-01-12 05:27] VITALS: PULSE 58; RESP 26; O2SAT 97
[2023-01-12 05:32] VITALS: PULSE 63; RESP 24; O2SAT 97
[2023-01-12] MEDS: FUROSEMIDE 40 MG/4 ML VIAL IV SCH ×3 (06:03→22:52)
[2023-01-12] MEDS: ACCU-CHEK COMFORT CURVE STRIP VI SCH ×4 (06:43→22:09)
[2023-01-12] MEDS: InsuLIN REG 1unit/0.01ml Soln (100units/ml) SC SCH ×4 (06:54→22:00)
[2023-01-12] MEDS: POTASSIUM CHL 20MEQ/50ML 50 ML IV SCH ×2 (06:56→09:05)
[2023-01-12 07:30] VITALS: PULSE 52; RESP 24; O2SAT 98
[2023-01-12] MEDS: MORPHINE SULFATE INJ 2 MG/ml SYRG IV PRN (08:10)
[2023-01-12] MEDS ORDERED: POTASSIUM CHL 20MEQ/100ML 100 ML IV SCH (08:15)
[2023-01-12] MEDS: INSULIN LANTUS (GLARGINE) 1 /0.01ml (100units/ml) SC SCH (08:20)
[2023-01-12 08:25] LABS: Basophils # (auto) 0 10 ^3/uL (0-0.2); Basophils % (auto) 0.5 % (0.0-2.0); Eosinophils # (auto) 0.2 10 ^3/uL (0-0.8); Eosinophils % (auto) 2.8 % (0.0-7.0); Hematocrit 34.7 % (36.0-46.0); Hemoglobin 11.8 g/dL (12.2-16.2); Lymphocytes # (auto) 0.4 10 ^3/uL (0.4-5.4); Lymphocytes % (auto) 4.6 % (10.0-50.0); Mean Corpuscular Hemoglobin 30.1 pg (28.0-32.0); Mean Corpuscular Volume 88.5 fL (80.0-100.0); Monocytes # (auto) 0.8 10 ^3/uL (0-1.3); Neutrophils # (auto) 7.5 10 ^3/uL (1.6-8.6); Neutrophils % (auto) 83.1 % (37.0-80.0); Red Blood Cells 3.92 10^6/uL (4.0-5.20); Red Cell Distribution Width 14.2 % (11.8-14.3)
[2023-01-12 08:46] LABS: Alanine Aminotransferase 18 U/L (7-40); Alkaline Phosphatase 57 U/L (46-116); Anion Gap 8 (5-15); Aspartate Aminotransferase 19 U/L (13-40); BUN/Creatinine Ratio 16.2 (10.0-20.0); Bilirubin, Total 1.2 mg/dL (0.2-1.0); Blood Urea Nitrogen 6 mg/dL (9-23); Carbon Dioxide 27 mmol/L (20-30); Chloride 85 mmol/L (98-107); Glucose 190 mg/dL (74-106); Potassium 2.9 mmol/L (3.5-5.1); Total Protein 6.9 g/dL (5.7-8.2)
[2023-01-12 08:56] LABS: Sodium 120 mmol/L (136-145)
[2023-01-12] MEDS: amLODIPine BESYLATE 5 MG TAB PO SCH (10:00)
[2023-01-12] MEDS: LOSARTAN POTASSIUM 50 MG TAB PO SCH (10:00)
[2023-01-12] MEDS ORDERED: ENOXAPARIN SOD 40 MG/0.4 ML SYRINGE SC SCH (10:00)
[2023-01-12] MEDS: PANTOPRAZOLE 40 MG/10 ML VIAL INJ IV SCH ×2 (12:13→22:52)
[2023-01-12 13:58] LABS: Magnesium 1.4 mg/dL (1.6-2.6)
[2023-01-12] MEDS: MAGNESIUM SULFATE 1GM/100ML 100 ML IV SCH ×3 (18:57→20:16)
[2023-01-12 19:01] VITALS: PULSE 52; RESP 23; O2SAT 97
[2023-01-12 19:22] VITALS: BP 134/48; PULSE 54; RESP 24; O2SAT 100
[2023-01-12 19:45] LABS: Chloride 88 mmol/L (98-107); Potassium 3.3 mmol/L (3.5-5.1); Sodium 123 mmol/L (136-145)
[2023-01-12 19:46] LABS: Anion Gap 7 (5-15); Carbon Dioxide 28 mmol/L (20-30)
[2023-01-12 19:47] LABS: Calcium 8.7 mg/dL (8.7-10.4)
[2023-01-12 19:51] LABS: Glucose 86 mg/dL (74-106)
[2023-01-12 19:52] LABS: BUN/Creatinine Ratio 17.9 (10.0-20.0); Blood Urea Nitrogen < 5 mg/dL (9-23)
[2023-01-12 23:11] LABS: Chloride 90 mmol/L (98-107); Potassium 2.9 mmol/L (3.5-5.1); Sodium 124 mmol/L (136-145)
[2023-01-12 23:12] LABS: Anion Gap 7 (5-15); Carbon Dioxide 27 mmol/L (20-30)
[2023-01-12 23:17] LABS: Glucose 127 mg/dL (74-106)
[2023-01-12 23:19] LABS: BUN/Creatinine Ratio 18.5 (10.0-20.0); Blood Urea Nitrogen < 5 mg/dL (9-23)
[2023-01-13] VITALS (15 sets, daily range): BP systolic 107–131; BP diastolic 34–55; PULSE 44–91; RESP 15–24; TEMP 97.9–98.3; O2SAT 94–100
[2023-01-13 04:17] LABS: Basophils # (auto) 0.1 10 ^3/uL (0-0.2); Eosinophils # (auto) 0.5 10 ^3/uL (0-0.8); Hematocrit 32.2 % (36.0-46.0); Hemoglobin 10.9 g/dL (12.2-16.2); Lymphocytes # (auto) 0.5 10 ^3/uL (0.4-5.4); Lymphocytes % (auto) 9.2 % (10.0-50.0); Mean Corpuscular Hgb Conc. 33.9 g/dL (32.0-36.0); Mean Corpuscular Volume 88.4 fL (80.0-100.0); Monocytes # (auto) 0.6 10 ^3/uL (0-1.3); Monocytes % (auto) 11.9 % (0.0-12.0); Neutrophils # (auto) 3.6 10 ^3/uL (1.6-8.6); Neutrophils % (auto) 67.9 % (37.0-80.0); Nucleated Red Blood Cells % 0.1 %; Red Blood Cells 3.64 10^6/uL (4.0-5.20); Red Cell Distribution Width 14.3 % (11.8-14.3); White Blood Cell 5.4 10^3/uL (4.4-10.8)
[2023-01-13 04:25] LABS: Chloride 89 mmol/L (98-107); Potassium 2.8 mmol/L (3.5-5.1); Sodium 124 mmol/L (136-145)
[2023-01-13 04:26] LABS: Anion Gap 7 (5-15); Calcium 8.4 mg/dL (8.7-10.4); Carbon Dioxide 28 mmol/L (20-30)
[2023-01-13 04:31] LABS: Glucose 78 mg/dL (74-106)
[2023-01-13 04:32] LABS: Magnesium 1.7 mg/dL (1.6-2.6)
[2023-01-13 04:34] LABS: BUN/Creatinine Ratio 16.7 (10.0-20.0); Blood Urea Nitrogen < 5 mg/dL (9-23)
[2023-01-13] MEDS: POTASSIUM CHL 20MEQ/100ML 100 ML IV SCH ×4 (05:48→11:38)
[2023-01-13] MEDS: FUROSEMIDE 40 MG/4 ML VIAL IV SCH ×3 (05:53→22:46)
[2023-01-13] MEDS ORDERED: MAGNESIUM SULFATE 1GM/100ML 100 ML IV ONE (06:30)
[2023-01-13] MEDS: InsuLIN REG 1unit/0.01ml Soln (100units/ml) SC SCH ×4 (06:53→22:56)
[2023-01-13] MEDS: ACCU-CHEK COMFORT CURVE STRIP VI SCH ×4 (06:53→22:46)
[2023-01-13] MEDS: INSULIN LANTUS (GLARGINE) 1 /0.01ml (100units/ml) SC SCH (06:55)
[2023-01-13] MEDS: amLODIPine BESYLATE 5 MG TAB PO SCH (10:00)
[2023-01-13] MEDS: LOSARTAN POTASSIUM 50 MG TAB PO SCH (10:00)
[2023-01-13] MEDS: ENOXAPARIN SOD 100 MG/1 ML SYRINGE SC SCH ×2 (10:00→22:46)
[2023-01-13] MEDS: PANTOPRAZOLE 40 MG/10 ML VIAL INJ IV SCH ×2 (10:00→22:46)
[2023-01-13] MEDS ORDERED: FUROSEMIDE 20 MG/2 ML VIAL IV ONE (12:15)
[2023-01-13 13:25] LABS: Chloride 94 mmol/L (98-107); Sodium 127 mmol/L (136-145)
[2023-01-13 13:26] LABS: Anion Gap 6 (5-15); Carbon Dioxide 27 mmol/L (20-30)
[2023-01-13 13:27] LABS: Calcium 8.5 mg/dL (8.7-10.4)
[2023-01-13 13:31] LABS: Glucose 87 mg/dL (74-106)
[2023-01-13 13:32] LABS: Magnesium 1.9 mg/dL (1.6-2.6)
[2023-01-13 13:48] LABS: BUN/Creatinine Ratio 17.9 (10.0-20.0); Blood Urea Nitrogen < 5 mg/dL (9-23)
[2023-01-13] MEDS: MEROPENEM 1GM IVPB 100 ML IV SCH ×2 (15:30→22:47)
[2023-01-14] VITALS (12 sets, daily range): BP systolic 120–139; BP diastolic 49–73; PULSE 53–82; RESP 16–28; TEMP 37.1; O2SAT 92–100
[2023-01-14] MEDS: FUROSEMIDE 40 MG/4 ML VIAL IV SCH (06:21)
[2023-01-14] MEDS: ACCU-CHEK COMFORT CURVE STRIP VI SCH ×4 (06:21→22:01)
[2023-01-14] MEDS: MEROPENEM 1GM IVPB 100 ML IV SCH ×3 (06:22→21:58)
[2023-01-14] MEDS: InsuLIN REG 1unit/0.01ml Soln (100units/ml) SC SCH ×4 (06:27→22:00)
[2023-01-14] MEDS: INSULIN LANTUS (GLARGINE) 1 /0.01ml (100units/ml) SC SCH (06:27)
[2023-01-14 06:36] LABS: Alanine Aminotransferase 16 U/L (7-40); Alkaline Phosphatase 62 U/L (46-116); Anion Gap 9 (5-15); Carbon Dioxide 29 mmol/L (20-30); Chloride 97 mmol/L (98-107); Glucose 72 mg/dL (74-106); Magnesium 1.8 mg/dL (1.6-2.6); Potassium 2.7 mmol/L (3.5-5.1)
[2023-01-14 06:37] LABS: Aspartate Aminotransferase 17 U/L (13-40); Bilirubin, Total 1.1 mg/dL (0.2-1.0); Total Protein 6.9 g/dL (5.7-8.2)
[2023-01-14 06:41] LABS: Basophils # (auto) 0.1 10 ^3/uL (0-0.2); Eosinophils # (auto) 0.5 10 ^3/uL (0-0.8); Eosinophils % (auto) 8.2 % (0.0-7.0); Hematocrit 37.2 % (36.0-46.0); Hemoglobin 12.8 g/dL (12.2-16.2); Lymphocytes # (auto) 0.5 10 ^3/uL (0.4-5.4); Lymphocytes % (auto) 7.7 % (10.0-50.0); Mean Corpuscular Hemoglobin 30.2 pg (28.0-32.0); Mean Corpuscular Hgb Conc. 34.2 g/dL (32.0-36.0); Mean Corpuscular Volume 88.1 fL (80.0-100.0); Monocytes # (auto) 0.8 10 ^3/uL (0-1.3); Monocytes % (auto) 12.2 % (0.0-12.0); Neutrophils # (auto) 4.7 10 ^3/uL (1.6-8.6); Neutrophils % (auto) 70.9 % (37.0-80.0); Red Blood Cells 4.23 10^6/uL (4.0-5.20); Red Cell Distribution Width 14.1 % (11.8-14.3); White Blood Cell 6.6 10^3/uL (4.4-10.8)
[2023-01-14 07:06] LABS: BUN/Creatinine Ratio 17.2 (10.0-20.0); Blood Urea Nitrogen < 5 mg/dL (9-23); Sodium 135 mmol/L (136-145)
[2023-01-14] MEDS ORDERED: D5W 5% IV ONE (07:30)
[2023-01-14] MEDS ORDERED: POTASSIUM CHLORIDE IV ONE (07:30)
[2023-01-14] MEDS ORDERED: LIDOCAINE 1% IV ONE (07:30)
[2023-01-14] MEDS: amLODIPine BESYLATE 5 MG TAB PO SCH (10:00)
[2023-01-14] MEDS: LOSARTAN POTASSIUM 50 MG TAB PO SCH (10:00)
[2023-01-14] MEDS: PANTOPRAZOLE 40 MG/10 ML VIAL INJ IV SCH ×2 (11:18→21:57)
[2023-01-14] MEDS: ENOXAPARIN SOD 100 MG/1 ML SYRINGE SC SCH ×2 (11:21→21:58)
[2023-01-14 12:33] LABS: Chloride 98 mmol/L (98-107); Potassium 2.8 mmol/L (3.5-5.1); Sodium 137 mmol/L (136-145)
[2023-01-14 12:34] LABS: Anion Gap 9 (5-15); Carbon Dioxide 30 mmol/L (20-30)
[2023-01-14 12:35] LABS: Calcium 9.1 mg/dL (8.7-10.4)
[2023-01-14 12:39] LABS: Glucose 89 mg/dL (74-106)
[2023-01-14 12:40] LABS: Magnesium 1.7 mg/dL (1.6-2.6)
[2023-01-14 12:55] LABS: BUN/Creatinine Ratio 15.2 (10.0-20.0); Blood Urea Nitrogen < 5 mg/dL (9-23)
[2023-01-14] MEDS ORDERED: MAGNESIUM SULFATE 1GM/100ML 100 ML IV ONE (14:30)
[2023-01-14] MEDS: Glucerna Carbsteady SHAKE Vanilla 8oz PEG SCH ×3 (15:32→22:02)
[2023-01-14 17:38] LABS: Potassium 4.1 mmol/L (3.5-5.1)
[2023-01-14] MEDS ORDERED: ALBU2TAB11 NEB (17:55)
[2023-01-14] MEDS: ALBUTEROL MEDNEB 2.5 mg/3ml NEB NEB PRN (19:08)
[2023-01-15] VITALS (12 sets, daily range): BP systolic 125–140; BP diastolic 45–62; PULSE 57–70; RESP 16–21; TEMP 98–100.1; O2SAT 95–100
[2023-01-15 05:49] LABS: Basophils # (auto) 0 10 ^3/uL (0-0.2); Basophils % (auto) 0.7 % (0.0-2.0); Eosinophils # (auto) 0.5 10 ^3/uL (0-0.8); Eosinophils % (auto) 7.8 % (0.0-7.0); Hematocrit 35.8 % (36.0-46.0); Hemoglobin 12.2 g/dL (12.2-16.2); Lymphocytes # (auto) 0.8 10 ^3/uL (0.4-5.4); Lymphocytes % (auto) 12.7 % (10.0-50.0); Mean Corpuscular Hemoglobin 30.1 pg (28.0-32.0); Mean Corpuscular Volume 88.5 fL (80.0-100.0); Monocytes % (auto) 15.3 % (0.0-12.0); Neutrophils # (auto) 4.2 10 ^3/uL (1.6-8.6); Neutrophils % (auto) 63.5 % (37.0-80.0); Red Blood Cells 4.05 10^6/uL (4.0-5.20); Red Cell Distribution Width 14.5 % (11.8-14.3); White Blood Cell 6.6 10^3/uL (4.4-10.8)
[2023-01-15 05:57] LABS: Alanine Aminotransferase 15 U/L (7-40); Alkaline Phosphatase 66 U/L (46-116); Anion Gap 6 (5-15); Blood Urea Nitrogen 9 mg/dL (9-23); Calcium 9.2 mg/dL (8.7-10.4); Carbon Dioxide 30 mmol/L (20-30); Chloride 98 mmol/L (98-107); Glucose 105 mg/dL (74-106); Magnesium 2.1 mg/dL (1.6-2.6); Potassium 4.4 mmol/L (3.5-5.1); Sodium 134 mmol/L (136-145)
[2023-01-15] MEDS: MEROPENEM 1GM IVPB 100 ML IV SCH ×3 (05:57→22:06)
[2023-01-15] MEDS: ACCU-CHEK COMFORT CURVE STRIP VI SCH ×4 (05:57→22:08)
[2023-01-15] MEDS: Glucerna Carbsteady SHAKE Vanilla 8oz PEG SCH ×4 (05:57→22:09)
[2023-01-15 05:58] LABS: Albumin 3.9 g/dL (3.2-4.8); Aspartate Aminotransferase 16 U/L (13-40); Bilirubin, Total 0.9 mg/dL (0.2-1.0); Total Protein 6.7 g/dL (5.7-8.2)
[2023-01-15] MEDS: INSULIN LANTUS (GLARGINE) 1 /0.01ml (100units/ml) SC SCH (06:07)
[2023-01-15] MEDS: InsuLIN REG 1unit/0.01ml Soln (100units/ml) SC SCH ×4 (06:07→22:07)
[2023-01-15] MEDS: amLODIPine BESYLATE 5 MG TAB PO SCH (09:54)
[2023-01-15] MEDS: LOSARTAN POTASSIUM 50 MG TAB PO SCH (09:54)
[2023-01-15] MEDS: PANTOPRAZOLE 40 MG/10 ML VIAL INJ IV SCH ×2 (10:03→22:06)
[2023-01-15] MEDS: ENOXAPARIN SOD 100 MG/1 ML SYRINGE SC SCH ×2 (10:04→22:07)
[2023-01-15] MEDS: FUROSEMIDE 40 MG/4 ML VIAL IV SCH (10:04)
[2023-01-15] MEDS: ALBUTEROL MEDNEB 2.5 mg/3ml NEB NEB PRN (12:17)
[2023-01-16] VITALS (7 sets, daily range): BP systolic 110–159; BP diastolic 52–60; PULSE 66–83; RESP 18–22; TEMP 97.7–98.5; O2SAT 94–100
[2023-01-16] MEDS: Glucerna Carbsteady SHAKE Vanilla 8oz PEG SCH ×6 (02:00→20:15)
[2023-01-16] MEDS: hydrALAZINE HCL 20 MG/ML VL IV PRN (04:38)
[2023-01-16 05:41] LABS: Partial Thromboplastin Time 30.2 SEC (24.5-34.5)
[2023-01-16 05:52] LABS: INR 1.05 (0.9-1.15)
[2023-01-16] MEDS: InsuLIN REG 1unit/0.01ml Soln (100units/ml) SC SCH ×4 (05:53→23:15)
[2023-01-16] MEDS: MEROPENEM 1GM IVPB 100 ML IV SCH ×3 (05:53→23:16)
[2023-01-16] MEDS: INSULIN LANTUS (GLARGINE) 1 /0.01ml (100units/ml) SC SCH (05:54)
[2023-01-16] MEDS: ACCU-CHEK COMFORT CURVE STRIP VI SCH ×4 (05:54→23:01)
[2023-01-16] MEDS: PANTOPRAZOLE 40 MG/10 ML VIAL INJ IV SCH ×2 (09:50→23:16)
[2023-01-16] MEDS: LOSARTAN POTASSIUM 50 MG TAB PO SCH (09:51)
[2023-01-16] MEDS: FUROSEMIDE 40 MG/4 ML VIAL IV SCH (09:51)
[2023-01-16] MEDS: amLODIPine BESYLATE 5 MG TAB PO SCH (09:51)
[2023-01-16] MEDS: ENOXAPARIN SOD 100 MG/1 ML SYRINGE SC SCH (09:51)
[2023-01-16 10:14] LABS: Basophils # (auto) 0.1 10 ^3/uL (0-0.2); Basophils % (auto) 0.9 % (0.0-2.0); Eosinophils # (auto) 0.5 10 ^3/uL (0-0.8); Eosinophils % (auto) 7.1 % (0.0-7.0); Hematocrit 37.8 % (36.0-46.0); Hemoglobin 12.7 g/dL (12.2-16.2); Lymphocytes # (auto) 1.2 10 ^3/uL (0.4-5.4); Lymphocytes % (auto) 15.7 % (10.0-50.0); Mean Corpuscular Hemoglobin 29.9 pg (28.0-32.0); Mean Corpuscular Hgb Conc. 33.5 g/dL (32.0-36.0); Mean Corpuscular Volume 89.3 fL (80.0-100.0); Monocytes # (auto) 0.9 10 ^3/uL (0-1.3); Monocytes % (auto) 11.7 % (0.0-12.0); Neutrophils # (auto) 4.8 10 ^3/uL (1.6-8.6); Neutrophils % (auto) 64.6 % (37.0-80.0); Red Blood Cells 4.23 10^6/uL (4.0-5.20); Red Cell Distribution Width 14.6 % (11.8-14.3); White Blood Cell 7.4 10^3/uL (4.4-10.8)
[2023-01-16 10:27] LABS: Chloride 101 mmol/L (98-107); Potassium 3.7 mmol/L (3.5-5.1); Sodium 136 mmol/L (136-145)
[2023-01-16 10:28] LABS: Anion Gap 4 (5-15); Carbon Dioxide 31 mmol/L (20-30)
[2023-01-16 10:33] LABS: BUN/Creatinine Ratio 19.4 (10.0-20.0); Blood Urea Nitrogen 6 mg/dL (9-23); Glucose 110 mg/dL (74-106)
[2023-01-16 10:34] LABS: Magnesium 1.9 mg/dL (1.6-2.6)
[2023-01-16] MEDS: ENOXAPARIN SOD 80 MG/0.8ML SYRINGE SC SCH (23:20)
[2023-01-17] VITALS (10 sets, daily range): BP systolic 124–155; BP diastolic 38–59; PULSE 52–78; RESP 18–22; TEMP 98.7–99.9; O2SAT 94–99
[2023-01-17] MEDS: Glucerna Carbsteady SHAKE Vanilla 8oz PEG SCH ×6 (01:04→23:23)
[2023-01-17 05:34] LABS: Calcium 8.8 mg/dL (8.7-10.4); Chloride 99 mmol/L (98-107); Potassium 3.9 mmol/L (3.5-5.1); Sodium 134 mmol/L (136-145)
[2023-01-17 05:35] LABS: Anion Gap 5 (5-15); Basophils # (auto) 0.1 10 ^3/uL (0-0.2); Basophils % (auto) 0.8 % (0.0-2.0); Carbon Dioxide 30 mmol/L (20-30); Eosinophils # (auto) 0.6 10 ^3/uL (0-0.8); Eosinophils % (auto) 8.7 % (0.0-7.0); Hematocrit 35.8 % (36.0-46.0); Hemoglobin 11.9 g/dL (12.2-16.2); Lymphocytes # (auto) 0.9 10 ^3/uL (0.4-5.4); Lymphocytes % (auto) 14.4 % (10.0-50.0); Mean Corpuscular Hemoglobin 29.5 pg (28.0-32.0); Mean Corpuscular Hgb Conc. 33.1 g/dL (32.0-36.0); Monocytes # (auto) 0.9 10 ^3/uL (0-1.3); Monocytes % (auto) 13.9 % (0.0-12.0); Neutrophils # (auto) 3.9 10 ^3/uL (1.6-8.6); Neutrophils % (auto) 62.2 % (37.0-80.0); Nucleated Red Blood Cells % 0.1 %; Red Blood Cells 4.03 10^6/uL (4.0-5.20); Red Cell Distribution Width 14.4 % (11.8-14.3); White Blood Cell 6.3 10^3/uL (4.4-10.8)
[2023-01-17 05:40] LABS: Blood Urea Nitrogen 9 mg/dL (9-23); Glucose 101 mg/dL (74-106); Magnesium 1.9 mg/dL (1.6-2.6)
[2023-01-17] MEDS: INSULIN LANTUS (GLARGINE) 1 /0.01ml (100units/ml) SC SCH (06:06)
[2023-01-17] MEDS: InsuLIN REG 1unit/0.01ml Soln (100units/ml) SC SCH ×4 (06:07→23:16)
[2023-01-17] MEDS: ACCU-CHEK COMFORT CURVE STRIP VI SCH ×4 (06:07→23:15)
[2023-01-17] MEDS: MEROPENEM 1GM IVPB 100 ML IV SCH ×3 (07:01→23:23)
[2023-01-17] MEDS: PANTOPRAZOLE 40 MG/10 ML VIAL INJ IV SCH ×2 (11:21→23:22)
[2023-01-17] MEDS: ENOXAPARIN SOD 80 MG/0.8ML SYRINGE SC SCH ×2 (11:22→23:23)
[2023-01-17] MEDS: FUROSEMIDE 40 MG/4 ML VIAL IV SCH (11:22)
[2023-01-17] MEDS ORDERED: POLYETHYLENE GLYCOL 17 GM PWDR PEG PRN (12:45)
[2023-01-17] MEDS: LOSARTAN POTASSIUM 50 MG TAB GT SCH (14:14)
[2023-01-17] MEDS: amLODIPine BESYLATE 5 MG TAB GT SCH (14:15)
[2023-01-17] MEDS: ALBUTEROL MEDNEB 2.5 mg/3ml NEB NEB PRN (20:55)
[2023-01-17] MEDS ORDERED: ceFAZolin 1GM/50ML 50 ML IV ONE (21:15)
[2023-01-18] VITALS (11 sets, daily range): BP systolic 106–139; BP diastolic 43–65; PULSE 49–79; RESP 17–20; TEMP 97.7–98.8; O2SAT 92–100
[2023-01-18] MEDS: Glucerna Carbsteady SHAKE Vanilla 8oz PEG SCH ×5 (02:00→22:00)
[2023-01-18 06:34] LABS: Alanine Aminotransferase 17 U/L (7-40); Albumin 3.6 g/dL (3.2-4.8); Alkaline Phosphatase 72 U/L (46-116); Anion Gap 3 (5-15); Aspartate Aminotransferase 17 U/L (13-40); BUN/Creatinine Ratio 30.8 (10.0-20.0); Bilirubin, Total 0.7 mg/dL (0.2-1.0); Blood Urea Nitrogen 8 mg/dL (9-23); Calcium 8.8 mg/dL (8.7-10.4); Carbon Dioxide 31 mmol/L (20-30); Chloride 98 mmol/L (98-107); Glucose 91 mg/dL (74-106); Magnesium 1.9 mg/dL (1.6-2.6); Potassium 4.3 mmol/L (3.5-5.1); Sodium 132 mmol/L (136-145); Total Protein 6.4 g/dL (5.7-8.2)
[2023-01-18 06:37] LABS: Basophils # (auto) 0.1 10 ^3/uL (0-0.2); Eosinophils # (auto) 0.5 10 ^3/uL (0-0.8); Hematocrit 34.7 % (36.0-46.0); Hemoglobin 11.7 g/dL (12.2-16.2); Lymphocytes % (auto) 18.7 % (10.0-50.0); Mean Corpuscular Hemoglobin 30.3 pg (28.0-32.0); Mean Corpuscular Hgb Conc. 33.9 g/dL (32.0-36.0); Mean Corpuscular Volume 89.4 fL (80.0-100.0); Monocytes # (auto) 0.8 10 ^3/uL (0-1.3); Monocytes % (auto) 14.8 % (0.0-12.0); Neutrophils # (auto) 3.1 10 ^3/uL (1.6-8.6); Neutrophils % (auto) 56.5 % (37.0-80.0); Nucleated Red Blood Cells % 0.1 %; Red Blood Cells 3.88 10^6/uL (4.0-5.20); Red Cell Distribution Width 14.4 % (11.8-14.3); White Blood Cell 5.6 10^3/uL (4.4-10.8)
[2023-01-18] MEDS: MEROPENEM 1GM IVPB 100 ML IV SCH (06:45)
[2023-01-18 06:54] LABS: INR 1.04 (0.9-1.15); Partial Thromboplastin Time 34.7 SEC (24.5-34.5); Prothrombin Time 10.9 sec (9.3-11.8)
[2023-01-18] MEDS: ACCU-CHEK COMFORT CURVE STRIP VI SCH ×4 (07:00→22:03)
[2023-01-18] MEDS: INSULIN LANTUS (GLARGINE) 1 /0.01ml (100units/ml) SC SCH (07:00)
[2023-01-18] MEDS: InsuLIN REG 1unit/0.01ml Soln (100units/ml) SC SCH ×4 (07:00→22:00)
[2023-01-18] MEDS: ENOXAPARIN SOD 80 MG/0.8ML SYRINGE SC SCH ×2 (10:00→22:03)
[2023-01-18] MEDS: LOSARTAN POTASSIUM 50 MG TAB GT SCH (10:00)
[2023-01-18] MEDS: amLODIPine BESYLATE 5 MG TAB GT SCH (10:00)
[2023-01-18] MEDS: PANTOPRAZOLE 40 MG/10 ML VIAL INJ IV SCH ×2 (11:39→22:03)
[2023-01-18] MEDS: FUROSEMIDE 40 MG/4 ML VIAL IV SCH (11:40)
[2023-01-18] MEDS ORDERED: ALBUTEROL SULF 2.5 MG/0.5ML(0.5%) NEB SOLN ONE (12:20)
[2023-01-18] MEDS ORDERED: PROPOFOL 10 MG/ML 20 ML IV ONE (14:33)
[2023-01-19] MEDS: Glucerna Carbsteady SHAKE Vanilla 8oz PEG SCH ×4 (02:00→14:00)
[2023-01-19 05:00] VITALS: BP 129/64; PULSE 61; RESP 18; TEMP 97.7; O2SAT 100
[2023-01-19] MEDS: ENSURE CLEAR Apple 8oz Carton PO SCH ×2 (06:00→13:06)
[2023-01-19] MEDS: InsuLIN REG 1unit/0.01ml Soln (100units/ml) SC SCH ×2 (06:29→13:05)
[2023-01-19] MEDS: ACCU-CHEK COMFORT CURVE STRIP VI SCH ×2 (06:29→13:06)
[2023-01-19] MEDS: INSULIN LANTUS (GLARGINE) 1 /0.01ml (100units/ml) SC SCH (06:30)
[2023-01-19 07:21] LABS: Basophils # (auto) 0 10 ^3/uL (0-0.2); Basophils % (auto) 0.6 % (0.0-2.0); Eosinophils # (auto) 0.3 10 ^3/uL (0-0.8); Eosinophils % (auto) 5.1 % (0.0-7.0); Hemoglobin 12.5 g/dL (12.2-16.2); Lymphocytes # (auto) 0.7 10 ^3/uL (0.4-5.4); Lymphocytes % (auto) 10.9 % (10.0-50.0); Mean Corpuscular Hemoglobin 29.9 pg (28.0-32.0); Mean Corpuscular Hgb Conc. 33.7 g/dL (32.0-36.0); Mean Corpuscular Volume 88.7 fL (80.0-100.0); Monocytes # (auto) 0.7 10 ^3/uL (0-1.3); Monocytes % (auto) 10.9 % (0.0-12.0); Neutrophils # (auto) 4.9 10 ^3/uL (1.6-8.6); Neutrophils % (auto) 72.5 % (37.0-80.0); Nucleated Red Blood Cells % 0.1 %; Red Blood Cells 4.17 10^6/uL (4.0-5.20); Red Cell Distribution Width 14.1 % (11.8-14.3); White Blood Cell 6.7 10^3/uL (4.4-10.8)
[2023-01-19 07:42] LABS: Alanine Aminotransferase 23 U/L (7-40); Albumin 3.8 g/dL (3.2-4.8); Alkaline Phosphatase 67 U/L (46-116); Anion Gap 6 (5-15); Aspartate Aminotransferase 25 U/L (13-40); Bilirubin, Total 0.9 mg/dL (0.2-1.0); Calcium 9.2 mg/dL (8.7-10.4); Carbon Dioxide 31 mmol/L (20-30); Chloride 100 mmol/L (98-107); Glucose 112 mg/dL (74-106); Magnesium 1.9 mg/dL (1.6-2.6); Potassium 3.6 mmol/L (3.5-5.1); Sodium 137 mmol/L (136-145); Total Protein 6.7 g/dL (5.7-8.2)
[2023-01-19 07:48] LABS: BUN/Creatinine Ratio 27.8 (10.0-20.0); Blood Urea Nitrogen < 5 mg/dL (9-23)
[2023-01-19 08:00] VITALS: BP 106/48; PULSE 53; PULSE 74; RESP 20; TEMP 98; O2SAT 94
[2023-01-19 08:33] VITALS: O2SAT 98; O2SAT 99
[2023-01-19] MEDS ORDERED: POTASSIUM EFFERVESENT TAB 25 MEQ GT ONE (08:45)
[2023-01-19 09:00] VITALS: BP 153/63; PULSE 65; RESP 18; TEMP 98.3; O2SAT 100
[2023-01-19] MEDS: Glucerna Carbsteady SHAKE Chocolate 8oz PEG SCH ×3 (09:00→14:00)
[2023-01-19] MEDS: amLODIPine BESYLATE 5 MG TAB GT SCH (09:38)
[2023-01-19] MEDS: LOSARTAN POTASSIUM 50 MG TAB GT SCH (09:38)
[2023-01-19] MEDS: ENOXAPARIN SOD 80 MG/0.8ML SYRINGE SC SCH (09:39)
[2023-01-19] MEDS: PANTOPRAZOLE 40 MG/10 ML VIAL INJ IV SCH (09:39)
[2023-01-19] MEDS ORDERED: FUROSEMIDE 40 MG/4 ML VIAL IV SCH (10:00)
[2023-01-19 11:22] VITALS: BP 153/63; PULSE 65; RESP 18; TEMP 98.3; O2SAT 100
[2023-01-19 13:00] VITALS: BP 147/49; PULSE 66; RESP 17; TEMP 97.7; O2SAT 100
[2023-01-19] MEDS ORDERED: ALBUTEROL SULF 2.5 MG/0.5ML(0.5%) NEB SOLN NEB PRN (14:45)
== END 2023-01-19 14:30 | disposition hospice, home (50) | DRG 252 ==
LOC: ER 10:52 → EDBD 10:52 → TELE 14:02 → TELE-WESTW 01-13 21:14
PROVIDERS: ADMIT Internal Medicine Pulmonary Disease; ATTEND Emergency Medicine
PROC: 0DH68UZ Insertion of Feeding Device into Stomach, Via Natural or Artificial Opening Endoscopic (ICD-10-PCS; 2023-01-18)
PROC: 0DP68UZ Removal of Feeding Device from Stomach, Via Natural or Artificial Opening Endoscopic (ICD-10-PCS; principal; 2023-01-18 14:33)
DX: K94.23 Gastrostomy malfunction (principal); J96.01 Acute respiratory failure with hypoxia; G93.41 Metabolic encephalopathy; I50.43 Acute on chronic combined systolic (congestive) and diastolic (congestive) heart failure; E22.2 Syndrome of inappropriate secretion of antidiuretic hormone; I11.0 Hypertensive heart disease with heart failure; L89.152 Pressure ulcer of sacral region, stage 2; K29.71 Gastritis, unspecified, with bleeding; E11.65 Type 2 diabetes mellitus with hyperglycemia; D64.9 Anemia, unspecified; E87.6 Hypokalemia; Z66 Do not resuscitate; R00.1 Bradycardia, unspecified; F17.200 Nicotine dependence, unspecified, uncomplicated; E78.5 Hyperlipidemia, unspecified; I48.91 Unspecified atrial fibrillation; J45.909 Unspecified asthma, uncomplicated; Z20.822 Contact with and (suspected) exposure to COVID-19; N39.0 Urinary tract infection, site not specified; E83.42 Hypomagnesemia; J96.21 Acute and chronic respiratory failure with hypoxia; R91.1 Solitary pulmonary nodule; Z86.73 Personal history of transient ischemic attack (TIA), and cerebral infarction without residual deficits; Z79.01 Long term (current) use of anticoagulants; Z74.01 Bed confinement status; I25.2 Old myocardial infarction
CPT/HCPCS: 36415; 36600; 43246; 70450; 71045; 71250; 74176; 76604; 80048; 80053; 81001; 82533; 82570; 82805; 82962; 83605; 83735; 83880; 83930; 83935; 84100; 84132; 84295; 84300; 84439; 84443; 84481; 84484; 85014; 85018; 85025; 85610; 85730; 86850; 86900; 86901; 87040; 87086; 87088; 87186; 87426; 87804; 93005; 93970; 94640; 96365; 96375; 99291; C9113; G0378; J0690; J0696; J1815; J2001; J2185; J2543; J2704; J3480

== ENCOUNTER 2023-05-06 22:59 | Inpatient (IN) | payer MEDICAID ==
[~2023-05-06] VITALS: Ht 165.1 cm; Wt 74.3 kg
[~2023-05-06 22:59] MED LIST changes: -ADENOSINE 67 MG in GIVE UN-DILUTED 0 ML IV ONE; -ADENOSINE 90 MG/30 ML INJ IV ONE; +ALBU2TAB11 NEB; +AMLO1TAB23 PO; +APIX5TAB PO; +FURO40TA4 PO; +LOSA-535 PO; +METF-370 PO
[2023-05-06] MEDS: SODIUM CHLORIDE 0.9% 1,000 ML IV ONE (23:50)
[2023-05-06] MEDS: PIPERACILLIN-TAZOB 3.375GM 100 ML IV ONE (23:50)
[2023-05-07] VITALS (16 sets, daily range): BP systolic 92–153; BP diastolic 41–55; PULSE 20–85; RESP 17–26; TEMP 97.7–98.7; O2SAT 93–100
[2023-05-07 00:18] LABS: Basophils # (auto) 0 10 ^3/uL (0-0.2); Basophils % (auto) 0.1 % (0.0-2.0); Eosinophils # (auto) 0.6 10 ^3/uL (0-0.8); Eosinophils % (auto) 3.3 % (0.0-7.0); Hematocrit 32.9 % (36.0-46.0); Hemoglobin 10.8 g/dL (12.2-16.2); Lymphocytes # (auto) 0.7 10 ^3/uL (0.4-5.4); Lymphocytes % (auto) 3.6 % (10.0-50.0); Mean Corpuscular Hemoglobin 29.3 pg (28.0-32.0); Mean Corpuscular Hgb Conc. 32.9 g/dL (32.0-36.0); Mean Corpuscular Volume 88.9 fL (80.0-100.0); Monocytes % (auto) 5.4 % (0.0-12.0); Neutrophils # (auto) 16.4 10 ^3/uL (1.6-8.6); Neutrophils % (auto) 87.6 % (37.0-80.0); Nucleated Red Blood Cells % 0.1 %; Red Cell Distribution Width 14.4 % (11.8-14.3); White Blood Cell 18.7 10^3/uL (4.4-10.8)
[2023-05-07] MEDS ORDERED: VANCOMYCIN PER PHARMACY 0 MG IV SCH (00:30)
[2023-05-07 00:33] LABS: Lactic Acid w/Reflex 2.6 mmol/L (0.4-2.0)
[2023-05-07 00:34] LABS: Urine Bacteria FEW /hpf (None Seen); Urine Blood 1+ /uL (Negative); Urine Clarity Clear (Clear); Urine Color Yellow (Yellow); Urine Hyaline Cast FEW /lpf (0 - 2); Urine Protein, UAD TRACE (Negative); Urine Specific Gravity 1.013 (1.001-1.035); Urine WBC 10 /hpf (0 - 5)
[2023-05-07 00:38] LABS: Alanine Aminotransferase 11 U/L (7-40); Albumin 3.7 g/dL (3.2-4.8); Alkaline Phosphatase 145 U/L (46-116); Anion Gap 4 (5-15); Aspartate Aminotransferase 14 U/L (13-40); BUN/Creatinine Ratio 35.4 (10.0-20.0); Blood Urea Nitrogen 23 mg/dL (9-23); Calcium 9.3 mg/dL (8.7-10.4); Carbon Dioxide 32 mmol/L (20-30); Chloride 93 mmol/L (98-107); Glucose 172 mg/dL (74-106); Lipase 35 U/L (12-53); Potassium 4.4 mmol/L (3.5-5.1); Sodium 129 mmol/L (136-145)
[2023-05-07 00:39] LABS: Bilirubin, Total 0.4 mg/dL (0.2-1.0); Total Protein 6.8 g/dL (5.7-8.2)
[2023-05-07] MEDS: VANCOMYCIN 1GM/200ML 200 ML IV ONE (00:46)
[2023-05-07] MEDS: DexAMETHasone SOD PHOS 10MG/1ML VIAL INJ IV ONE (00:46)
[2023-05-07 01:17] LABS: COVID19 ANTIGEN SOFIA FIA NEGATIVE (NEGATIVE)
[2023-05-07] MEDS: IPRATROPIUM BROM 0.5 MG/2.5ML INH SOL NEB ONE (01:17)
[2023-05-07] MEDS: ALBUTEROL SULF 2.5 MG/0.5ML(0.5%) NEB SOLN NEB ONE (01:18)
[2023-05-07] MEDS: SODIUM CHLORIDE 0.9% 1,000 ML IV ONE (01:45)
[2023-05-07] MEDS ORDERED: ONDANSETRON HCL 4 MG/2 ML VIAL IV PRN (03:00)
[2023-05-07] MEDS: SODIUM CHLORIDE 0.9% 1,000 ML IV SCH (03:00)
[2023-05-07] MEDS ORDERED: DEXTROSE (50%) 50ML SYRG IV PRN (03:00)
[2023-05-07] MEDS ORDERED: ACETAMINOPHEN 325 MG TAB PO PRN (03:00)
[2023-05-07] MEDS ORDERED: DOCUSATE SOD 100 MG CAP PO PRN (03:00)
[2023-05-07] MEDS ORDERED: MORPHINE SULFATE INJ 2 MG/ml SYRG IV PRN ×2 (03:30→04:15)
[2023-05-07] MEDS ORDERED: NITROGLYCERIN 0.4 MG SL TAB SL PRN ×2 (03:30→04:15)
[2023-05-07] MEDS: NOREPINEPHRINE 8 MG/250ML KIT 250 ML IV SCH (04:19)
[2023-05-07 05:02] LABS: Basophils # (auto) 0 10 ^3/uL (0-0.2); Eosinophils # (auto) 0.2 10 ^3/uL (0-0.8); Hematocrit 32.4 % (36.0-46.0); Hemoglobin 10.8 g/dL (12.2-16.2); Lymphocytes # (auto) 0.4 10 ^3/uL (0.4-5.4); Lymphocytes % (auto) 2.1 % (10.0-50.0); Mean Corpuscular Hemoglobin 29.5 pg (28.0-32.0); Mean Corpuscular Hgb Conc. 33.3 g/dL (32.0-36.0); Mean Corpuscular Volume 88.5 fL (80.0-100.0); Monocytes # (auto) 0.4 10 ^3/uL (0-1.3); Neutrophils # (auto) 20.4 10 ^3/uL (1.6-8.6); Neutrophils % (auto) 94.9 % (37.0-80.0); Red Blood Cells 3.66 10^6/uL (4.0-5.20); Red Cell Distribution Width 14.3 % (11.8-14.3); White Blood Cell 21.5 10^3/uL (4.4-10.8)
[2023-05-07 05:30] LABS: Alanine Aminotransferase 10 U/L (7-40); Albumin 3.6 g/dL (3.2-4.8); Alkaline Phosphatase 113 U/L (46-116); Anion Gap 2 (5-15); Aspartate Aminotransferase 17 U/L (13-40); Blood Urea Nitrogen 30 mg/dL (9-23); Carbon Dioxide 33 mmol/L (20-30); Chloride 96 mmol/L (98-107); Glucose 143 mg/dL (74-106); Potassium 4.6 mmol/L (3.5-5.1); Sodium 131 mmol/L (136-145)
[2023-05-07 05:31] LABS: Bilirubin, Total 0.6 mg/dL (0.2-1.0); Total Protein 6.8 g/dL (5.7-8.2)
[2023-05-07 06:23] LABS: INR 1.17 (0.9-1.15); Prothrombin Time 12.2 sec (9.3-11.8)
[2023-05-07] MEDS: ACCU-CHEK COMFORT CURVE STRIP VI SCH (07:06)
[2023-05-07] MEDS: InsuLIN REG 1unit/0.01ml Soln (100units/ml) SC SCH ×2 (07:08→21:49)
[2023-05-07] MEDS: cefTRIAXone 1GM/50ML D5W 50 ML IV SCH (09:13)
[2023-05-07] MEDS: FUROSEMIDE 40 MG/4 ML VIAL IV SCH (09:30)
[2023-05-07] MEDS: DexAMETHasone SOD PHOS 10MG/1ML VIAL INJ IV SCH (09:30)
[2023-05-07] MEDS: IPRATROPIUM BROM 0.5 MG/2.5ML INH SOL NEB PRN (09:33)
[2023-05-07] MEDS: ALBUTEROL SULF 2.5 MG/0.5ML(0.5%) NEB SOLN NEB PRN (09:33)
[2023-05-07] MEDS: APIXABAN 2.5 MG TAB PO SCH (10:31)
[2023-05-07] MEDS ORDERED: [UNRECOGNIZED DRUG - OTHER] PO (13:07)
[2023-05-07] MEDS ORDERED: OMEP20TA85 PO (13:07)
[2023-05-07] MEDS ORDERED: SIMV80TA17 PO (13:07)
[2023-05-07] MEDS ORDERED: POTA-215 PO (13:07)
[2023-05-07] MEDS ORDERED: VANCOMYCIN 1GM/200ML 200 ML IV SCH (18:00)
[2023-05-07] MEDS: VANCOMYCIN 1GM/200ML 200 ML IV SCH (21:41)
[2023-05-07] MEDS: ALBUTEROL SULF 2.5 MG/0.5ML(0.5%) NEB SOLN NEB SCH (21:51)
[2023-05-07] MEDS: IPRATROPIUM BROM 0.5 MG/2.5ML INH SOL NEB SCH (21:51)
[2023-05-08] VITALS (26 sets, daily range): BP systolic 136–173; BP diastolic 53–73; PULSE 56–99; RESP 16–30; TEMP 97.9–99.1; O2SAT 90–100
[2023-05-08] MEDS: EPINEPHrine HCL 0.5 ML NEB ONE (02:55)
[2023-05-08] MEDS: EPINEPHrine HCL 0.5 ML NEB NEB ONE (03:03)
[2023-05-08 06:26] LABS: Hematocrit 34.3 % (36.0-46.0); Hemoglobin 11.4 g/dL (12.2-16.2); Mean Corpuscular Hemoglobin 29.5 pg (28.0-32.0); Mean Corpuscular Hgb Conc. 33.3 g/dL (32.0-36.0); Mean Corpuscular Volume 88.7 fL (80.0-100.0); Red Blood Cells 3.87 10^6/uL (4.0-5.20); Red Cell Distribution Width 14.4 % (11.8-14.3); White Blood Cell 23.3 10^3/uL (4.4-10.8)
[2023-05-08 06:41] LABS: Alanine Aminotransferase 14 U/L (7-40); Albumin 4.1 g/dL (3.2-4.8); Alkaline Phosphatase 82 U/L (46-116); Anion Gap 7 (5-15); Aspartate Aminotransferase 23 U/L (13-40); BUN/Creatinine Ratio 54.7 (10.0-20.0); Bilirubin, Total 0.5 mg/dL (0.2-1.0); Blood Urea Nitrogen 29 mg/dL (9-23); Calcium 9.3 mg/dL (8.7-10.4); Carbon Dioxide 29 mmol/L (20-30); Chloride 101 mmol/L (98-107); Glucose 188 mg/dL (74-106); Potassium 3.3 mmol/L (3.5-5.1); Sodium 137 mmol/L (136-145); Total Protein 7.6 g/dL (5.7-8.2)
[2023-05-08] MEDS: LORazepam 0.5 MG TAB PO PRN (06:46)
[2023-05-08 06:52] LABS: Basophils % (manual) 0 (0.0-2.0); Blast Cells 0; Eosinophils % (manual) 0 (0-7); Metamyelocytes % 0; Myelocytes % 0; Promyelocytes % 0; Reactive Lymphocytes 0
[2023-05-08 08:29] LABS: Band Neutrophils % (manual) 1; Lymphocytes % (manual) 4 (10.0-50.0); Monocytes % (manual) 7 (0-12)
[2023-05-08 08:31] LABS: Platelet Estimate Adequate; RBC Morphology Normal
[2023-05-08] MEDS: HYDROcodone-ACET 5/325MG TAB PO PRN (09:09)
[2023-05-08] MEDS: Glucerna Carbsteady SHAKE Chocolate 8oz PEG SCH (12:45)
[2023-05-08] MEDS: VANCOMYCIN 1GM/200ML 200 ML IV SCH (14:39)
[2023-05-08] MEDS ORDERED: VANCOMYCIN 1GM/200ML 200 ML IV SCH (14:45)
[2023-05-08] MEDS: LORazepam 0.5 MG TAB PEG PRN (15:38)
[2023-05-08] MEDS: PIPERACILLIN-TAZOB 3.375GM 100 ML IV ONE (15:39)
[2023-05-08] MEDS ORDERED: ATOR80TA PO (15:55)
[2023-05-08] MEDS ORDERED: IPRA0.00 INH (15:56)
[2023-05-08 18:45] LABS: Base Excess 5.2 mmol/L (-2.0-2.0)
[2023-05-08] MEDS: PIPERACILLIN-TAZOB 3.375GM 100 ML IV SCH (22:38)
[2023-05-09] VITALS (21 sets, daily range): BP systolic 132–163; BP diastolic 52–82; PULSE 3–96; RESP 16–27; TEMP 98.3–100; O2SAT 93–100
[2023-05-09] MEDS: Glucerna 1.2 Cal 1Liter BOTTLE GT SCH (12:58)
[2023-05-09] MEDS ORDERED: ACETAMINOPHEN 650 mg PER 20.3 mL UD GT PRN (13:30)
[2023-05-09] MEDS: hydrALAZINE HCL 20 MG/ML VL IV PRN (14:09)
[2023-05-09] MEDS: DOCUSATE ORAL LIQUID 100 MG/10 ML UD GT SCH (17:44)
[2023-05-09] MEDS: ACETAMINOPHEN 650 mg PER 20.3 mL UD GT PRN (17:44)
[2023-05-09] MEDS: ATORVASTATIN 20 MG TAB PO SCH (22:19)
[2023-05-10] VITALS (20 sets, daily range): BP systolic 142–176; BP diastolic 49–91; PULSE 55–101; RESP 18–38; TEMP 97.6–101.3; O2SAT 95–99
[2023-05-10 05:33] LABS: Basophils # (auto) 0 10 ^3/uL (0-0.2); Basophils % (auto) 0.1 % (0.0-2.0); Eosinophils # (auto) 0 10 ^3/uL (0-0.8); Eosinophils % (auto) 0.1 % (0.0-7.0); Hematocrit 32.8 % (36.0-46.0); Hemoglobin 10.9 g/dL (12.2-16.2); Lymphocytes # (auto) 0.8 10 ^3/uL (0.4-5.4); Lymphocytes % (auto) 7.9 % (10.0-50.0); Mean Corpuscular Hemoglobin 29.1 pg (28.0-32.0); Mean Corpuscular Hgb Conc. 33.2 g/dL (32.0-36.0); Mean Corpuscular Volume 87.7 fL (80.0-100.0); Monocytes # (auto) 1.1 10 ^3/uL (0-1.3); Monocytes % (auto) 11.1 % (0.0-12.0); Neutrophils % (auto) 80.8 % (37.0-80.0); Red Blood Cells 3.74 10^6/uL (4.0-5.20); Red Cell Distribution Width 14.5 % (11.8-14.3); White Blood Cell 9.9 10^3/uL (4.4-10.8)
[2023-05-10 05:46] LABS: Anion Gap 4 (5-15); Carbon Dioxide 34 mmol/L (20-30); Chloride 103 mmol/L (98-107); Potassium 3.2 mmol/L (3.5-5.1); Sodium 141 mmol/L (136-145)
[2023-05-10 05:47] LABS: Calcium 8.9 mg/dL (8.7-10.4)
[2023-05-10 05:52] LABS: BUN/Creatinine Ratio 40.4 (10.0-20.0); Blood Urea Nitrogen 21 mg/dL (9-23); Glucose 224 mg/dL (74-106)
[2023-05-10] MEDS: LOSARTAN POTASSIUM 50 MG TAB PO SCH (09:06)
[2023-05-10] MEDS: MEROPENEM 1GM IVPB 50 ML IV SCH (13:41)
[2023-05-10] MEDS: POTASSIUM CHLORIDE 60 MEQ, LIDOCAINE 1% (LOCAL ANESTH.) 6 ML in SODIUM CHL 0.9% 500 ML IV ONE (13:42)
[2023-05-10 15:08] LABS: Urine Bacteria NONE SEEN /hpf (None Seen); Urine Blood TRACE /uL (Negative); Urine Clarity Clear (Clear); Urine Color Colorless (Yellow); Urine Hyaline Cast FEW /lpf (0 - 2); Urine Protein, UAD Negative (Negative); Urine Specific Gravity 1.014 (1.001-1.035); Urine Urobilinogen Normal (Negative); Urine WBC 3 /hpf (0 - 5); Urine pH 7.5 (5.0-8.0)
[2023-05-10] MEDS: LACTULOSE 20Gm/30ML SOLN PEG PRN (17:20)
[2023-05-10] MEDS ORDERED: LACTULOSE 20Gm/30ML SOLN PEG SCH (18:00)
[2023-05-10 21:10] LABS: Base Excess 8.6 mmol/L (-2.0-2.0)
[2023-05-10] MEDS: DAKINS QUARTER STR 0.125% (NaHypochlorite) 473 ML TOPICAL SOL TOP SCH (22:41)
[2023-05-11] VITALS (19 sets, daily range): BP systolic 135–162; BP diastolic 58–77; PULSE 66–100; RESP 19–29; TEMP 97.6–99.5; O2SAT 95–100
[2023-05-11 06:24] LABS: Basophils # (auto) 0 10 ^3/uL (0-0.2); Basophils % (auto) 0.3 % (0.0-2.0); Eosinophils # (auto) 0.1 10 ^3/uL (0-0.8); Eosinophils % (auto) 0.8 % (0.0-7.0); Hematocrit 36.1 % (36.0-46.0); Hemoglobin 11.8 g/dL (12.2-16.2); Lymphocytes # (auto) 0.9 10 ^3/uL (0.4-5.4); Lymphocytes % (auto) 6.4 % (10.0-50.0); Mean Corpuscular Hemoglobin 29.2 pg (28.0-32.0); Mean Corpuscular Hgb Conc. 32.8 g/dL (32.0-36.0); Monocytes # (auto) 0.9 10 ^3/uL (0-1.3); Monocytes % (auto) 6.1 % (0.0-12.0); Neutrophils # (auto) 12.8 10 ^3/uL (1.6-8.6); Neutrophils % (auto) 86.4 % (37.0-80.0); Nucleated Red Blood Cells % 0.1 %; Red Blood Cells 4.05 10^6/uL (4.0-5.20); Red Cell Distribution Width 14.9 % (11.8-14.3); White Blood Cell 14.8 10^3/uL (4.4-10.8)
[2023-05-11 06:44] LABS: Chloride 103 mmol/L (98-107); Potassium 3.4 mmol/L (3.5-5.1); Sodium 144 mmol/L (136-145)
[2023-05-11 06:45] LABS: Anion Gap 6 (5-15); Calcium 9.3 mg/dL (8.5-10.1); Carbon Dioxide 35 mmol/L (20-30)
[2023-05-11 06:51] LABS: BUN/Creatinine Ratio 29.4 (10.0-20.0); Blood Urea Nitrogen 15 mg/dL (9-23); Glucose 179 mg/dL (74-106)
[2023-05-11] MEDS: APIXABAN 2.5 MG TAB GT SCH (22:00)
[2023-05-11] MEDS: ATORVASTATIN 20 MG TAB GT SCH (22:00)
[2023-05-12] VITALS (17 sets, daily range): BP systolic 135–173; BP diastolic 54–87; PULSE 65–101; RESP 18–22; TEMP 97.4–98.7; O2SAT 96–100
[2023-05-12] MEDS: LOSARTAN POTASSIUM 50 MG TAB GT SCH (09:18)
[2023-05-12 14:54] LABS: Hematocrit 39.3 % (36.0-46.0); Mean Corpuscular Hemoglobin 29.6 pg (28.0-32.0); Mean Corpuscular Hgb Conc. 33.1 g/dL (32.0-36.0); Mean Corpuscular Volume 89.4 fL (80.0-100.0); Red Cell Distribution Width 14.8 % (11.8-14.3); White Blood Cell 14.6 10^3/uL (4.4-10.8)
[2023-05-12 14:59] LABS: Basophils % (manual) 0 (0.0-2.0); Blast Cells 0; Eosinophils % (manual) 0 (0-7); Metamyelocytes % 0; Myelocytes % 0; Promyelocytes % 0; Reactive Lymphocytes 0
[2023-05-12 15:18] LABS: Band Neutrophils % (manual) 4; Lymphocytes % (manual) 5 (10.0-50.0); Monocytes % (manual) 3 (0-12); Platelet Estimate Increased
[2023-05-13] VITALS (19 sets, daily range): BP systolic 142–168; BP diastolic 58–76; PULSE 80–110; RESP 14–20; TEMP 97.4–98.9; O2SAT 94–100
[2023-05-13] MEDS: METOPROLOL TARTRATE 25 MG TAB PO SCH (21:47)
[2023-05-14] VITALS (19 sets, daily range): BP systolic 109–157; BP diastolic 65–75; PULSE 80–105; RESP 18–24; TEMP 97.8–101.4; O2SAT 93–100
[2023-05-14] MEDS: INSULIN LANTUS (GLARGINE) 1 /0.01ml (100units/ml) SC SCH (11:47)
[2023-05-14] MEDS ORDERED: INSULIN LANTUS (GLARGINE) 1 /0.01ml (100units/ml) SC SCH (15:15)
[2023-05-14 16:33] LABS: Basophils # (auto) 0 10 ^3/uL (0-0.2); Eosinophils # (auto) 0 10 ^3/uL (0-0.8); Hematocrit 44.1 % (36.0-46.0); Hemoglobin 14.4 g/dL (12.2-16.2); Lymphocytes # (auto) 0.5 10 ^3/uL (0.4-5.4); Lymphocytes % (auto) 4.2 % (10.0-50.0); Mean Corpuscular Hemoglobin 29.4 pg (28.0-32.0); Mean Corpuscular Hgb Conc. 32.6 g/dL (32.0-36.0); Mean Corpuscular Volume 90.2 fL (80.0-100.0); Monocytes # (auto) 0.5 10 ^3/uL (0-1.3); Monocytes % (auto) 3.8 % (0.0-12.0); Neutrophils # (auto) 11.8 10 ^3/uL (1.6-8.6); Red Blood Cells 4.89 10^6/uL (4.0-5.20); White Blood Cell 12.8 10^3/uL (4.4-10.8)
[2023-05-14 16:42] LABS: Chloride 107 mmol/L (98-107); Potassium 3.1 mmol/L (3.5-5.1)
[2023-05-14 16:43] LABS: Anion Gap 8 (5-15); Calcium 9.1 mg/dL (8.5-10.1); Carbon Dioxide 38 mmol/L (20-30)
[2023-05-14 16:48] LABS: BUN/Creatinine Ratio 51.4 (10.0-20.0); Blood Urea Nitrogen 36 mg/dL (9-23); Glucose 376 mg/dL (74-106)
[2023-05-14 16:50] LABS: Sodium 153 mmol/L (136-145)
[2023-05-15] VITALS (20 sets, daily range): BP systolic 103–142; BP diastolic 55–73; PULSE 71–118; RESP 15–32; TEMP 97.5–101.5; O2SAT 93–100
[2023-05-15 05:43] LABS: Basophils # (auto) 0 10 ^3/uL (0-0.2); Basophils % (auto) 0.1 % (0.0-2.0); Eosinophils # (auto) 0 10 ^3/uL (0-0.8); Eosinophils % (auto) 0.1 % (0.0-7.0); Hematocrit 45.2 % (36.0-46.0); Hemoglobin 14.9 g/dL (12.2-16.2); Lymphocytes # (auto) 0.9 10 ^3/uL (0.4-5.4); Lymphocytes % (auto) 6.1 % (10.0-50.0); Mean Corpuscular Hemoglobin 29.7 pg (28.0-32.0); Mean Corpuscular Volume 90.1 fL (80.0-100.0); Monocytes # (auto) 1.2 10 ^3/uL (0-1.3); Monocytes % (auto) 8.1 % (0.0-12.0); Neutrophils # (auto) 13.2 10 ^3/uL (1.6-8.6); Neutrophils % (auto) 85.6 % (37.0-80.0); Red Blood Cells 5.01 10^6/uL (4.0-5.20); Red Cell Distribution Width 15.1 % (11.8-14.3); White Blood Cell 15.4 10^3/uL (4.4-10.8)
[2023-05-15 05:47] LABS: Chloride 109 mmol/L (98-107); Sodium 156 mmol/L (136-145)
[2023-05-15 05:48] LABS: Anion Gap 8 (5-15); Carbon Dioxide 39 mmol/L (20-30)
[2023-05-15 05:49] LABS: Calcium 9.3 mg/dL (8.5-10.1)
[2023-05-15 05:53] LABS: Glucose 250 mg/dL (74-106)
[2023-05-15 05:54] LABS: Blood Urea Nitrogen 40 mg/dL (9-23)
[2023-05-15] MEDS: VANCOMYCIN 1GM/200ML 200 ML IV SCH (10:37)
[2023-05-16] VITALS (12 sets, daily range): BP systolic 91–108; BP diastolic 37–72; PULSE 90–121; RESP 15–48; TEMP 98.8–101.5; O2SAT 97–100
[2023-05-16] MEDS: LORazepam 2MG/ML-1ML VIAL IV PRN (09:12)
[2023-05-16] MEDS ORDERED: D5W/SOD CHL 0.45% 1,000 ML IV ONE (14:00)
== END 2023-05-16 10:25 | DRG 720 ==
LOC: ER 22:59 → EDBD 22:59 → EDUNIT# 22:59 → TELE 05-07 03:20 → TELE-EAST 05-07 18:00
PROVIDERS: ADMIT Internal Medicine; ATTEND Internal Medicine
PROC: 5A09357 Assistance with Respiratory Ventilation, Less than 24 Consecutive Hours, Continuous Positive Airway Pressure (ICD-10-PCS; principal; 2023-05-08)
PROC: 5A09457 Assistance with Respiratory Ventilation, 24-96 Consecutive Hours, Continuous Positive Airway Pressure (ICD-10-PCS; 2023-05-09)
PROC: 5A09357 Assistance with Respiratory Ventilation, Less than 24 Consecutive Hours, Continuous Positive Airway Pressure (ICD-10-PCS; 2023-05-12)
PROC: 5A09357 Assistance with Respiratory Ventilation, Less than 24 Consecutive Hours, Continuous Positive Airway Pressure (ICD-10-PCS; 2023-05-13)
PROC: 5A09357 Assistance with Respiratory Ventilation, Less than 24 Consecutive Hours, Continuous Positive Airway Pressure (ICD-10-PCS; 2023-05-14)
PROC: 5A09357 Assistance with Respiratory Ventilation, Less than 24 Consecutive Hours, Continuous Positive Airway Pressure (ICD-10-PCS; 2023-05-16)
DX: A41.9 Sepsis, unspecified organism (principal); J96.01 Acute respiratory failure with hypoxia; G93.41 Metabolic encephalopathy; I50.33 Acute on chronic diastolic (congestive) heart failure; J15.69 Pneumonia due to other Gram-negative bacteria; J15.9 Unspecified bacterial pneumonia; E87.3 Alkalosis; J81.1 Chronic pulmonary edema; I48.19 Other persistent atrial fibrillation; E87.1 Hypo-osmolality and hyponatremia; Z20.822 Contact with and (suspected) exposure to COVID-19; N39.0 Urinary tract infection, site not specified; E86.9 Volume depletion, unspecified; J44.1 Chronic obstructive pulmonary disease with (acute) exacerbation; Z66 Do not resuscitate; J45.901 Unspecified asthma with (acute) exacerbation; I11.0 Hypertensive heart disease with heart failure; E11.65 Type 2 diabetes mellitus with hyperglycemia; E78.5 Hyperlipidemia, unspecified; J98.11 Atelectasis; J90 Pleural effusion, not elsewhere classified; E87.6 Hypokalemia; R62.7 Adult failure to thrive; J44.0 Chronic obstructive pulmonary disease with (acute) lower respiratory infection; Z86.73 Personal history of transient ischemic attack (TIA), and cerebral infarction without residual deficits; Z79.01 Long term (current) use of anticoagulants; Z93.1 Gastrostomy status; Z90.710 Acquired absence of both cervix and uterus; Z68.27 Body mass index [BMI] 27.0-27.9, adult
CPT/HCPCS: 36415; 36600; 70450; 71045; 71250; 80048; 80053; 80202; 81001; 82565; 82570; 82805; 82962; 83605; 83690; 83735; 83880; 84484; 85007; 85025; 85027; 85379; 85610; 87040; 87077; 87086; 87088; 87186; 87205; 87426; 93005; 93306; 94640; 94660; 96365; G0378; J1100; J1815; J2001; J2185; J2543